=== PATIENT | male | born 1950 | race Caucasian/White ===

== ENCOUNTER 2017-02-21 06:04 | Day surgery (SDC) | payer MEDICARE ==
[~2017-02-21] VITALS: Ht 180.3 cm; Wt 79.2 kg
[~2017-02-21 06:04] MED LIST: AMLO10TA2 PO; ASPI325T PO; ATOR1TAB18 PO; CILO50TA PO; FISH1000; GABA100C4 PO; GABA800T PO; HYDR-3580 PO; LISI-515 PO; METO25TA3 PO
[2017-02-21] MEDS ORDERED: IOHEXOL 350 MG/ML 100 ML BTL (for Cath Lab) OTHER ONE (06:05)
[2017-02-21] MEDS ORDERED: IOHEXOL 350 MG/ML 50 ML BTL (for Cath Lab) OTHER ONE (06:05)
[2017-02-21] MEDS ORDERED: SODIUM BICARBONATE 100 MEQ in D5W 1000 ML IV SCH (06:30)
[2017-02-21 06:48] VITALS: BP 119/68; PULSE 67; RESP 17; TEMP 98.2; O2SAT 98
[2017-02-21 07:07] LABS: BASOPHIL % 0.3 % (0.0-2.0); EOSINOPHIL # 0.2 TH/MM3 (0-0.4); EOSINOPHIL % 2.4 % (0.0-4.0); HEMATOCRIT 34.9 % (39.0-51.0); HEMO FLAGS DIFF FINAL; LYMPH % 8.7 % (9.0-44.0); LYMPHOCYTE # 0.8 TH/MM3 (1.0-4.8); MEAN CELL VOLUME 95.1 FL (80.0-100.0); MEAN CORPUSCULAR HGB CONC 34.7 % (32.0-36.0); MONO % 4.1 % (0.0-8.0); NEUT % 84.5 % (16.0-70.0); PLATELET COUNT 153 TH/MM3 (150-450); RED BLOOD COUNT 3.67 MIL/MM3 (4.50-5.90); RED CELL DISTRIBUTION WIDTH 13.1 % (11.6-17.2); WHITE BLOOD COUNT 9.5 TH/MM3 (4.0-11.0)
[2017-02-21] MEDS ORDERED: GABA800T PO (07:13)
[2017-02-21] MEDS ORDERED: ATOR1TAB18 PO (07:13)
[2017-02-21] MEDS ORDERED: CILO50TA PO (07:13)
[2017-02-21] MEDS ORDERED: ASPI325T PO (07:13)
[2017-02-21] MEDS ORDERED: LISI-515 PO (07:13)
[2017-02-21] MEDS ORDERED: OMEGCAP PO (07:13)
[2017-02-21] MEDS ORDERED: AMLO10TA2 PO (07:13)
[2017-02-21] MEDS ORDERED: MULTTAB67 PO (07:13)
[2017-02-21] MEDS ORDERED: GABA100C4 PO (07:13)
[2017-02-21] MEDS ORDERED: HYDR-3580 PO (07:13)
[2017-02-21] MEDS ORDERED: METO25TA3 PO (07:13)
[2017-02-21 07:14] LABS: PROTHROMBIN TIME - PATIENT 10.7 SEC (9.8-11.6)
[2017-02-21 07:24] LABS: BICARBONATE 26.9 MEQ/L (21.0-32.0); POTASSIUM 4.5 MEQ/L (3.5-5.1)
[2017-02-21] MEDS ORDERED: MIDAZOLAM HCL 2 MG/2 ML VIAL ONE (07:55)
[2017-02-21] MEDS ORDERED: HEPARIN SODIUM - IV 10,000 UNITS/10 ML VIAL ONE (07:56)
[2017-02-21] MEDS ORDERED: HEPARIN-NS/PF INJ 1,000 ML ONE (08:07)
--- NOTE | 2017-02-21 09:06 | CATHPROC ---
[employer] HIS Report Study Information Study Number Admission Scheduled Start Study Start [id number] Feb 21 2017 6:04AM 02/21/2017 Feb 21 2017 7:48AM [place] Service Cath Endovascular Study Admit Source Facility Department Other [facility] - Audio Visual Coordinator Physician and Clinical Staff Initial [employer] Assistant Department Head Aj Fan RN Recorder Hanna Mejia,RT(R) (BS) Scrub Emmett MoranRT(R) Procedures Performed Procedure Location (Site) Vessel Name Abdominal Angiogram Abd Aorta (A3) Aorta Abdominal Angiogram PELVIS Angiogram (manual) Fem Art (left) Femoral Art Wire insertion Fem Art (left) Femoral Art Wire insertion Fem Art (right) Femoral Art Equipment Time Insulation Batting Machine Operator Description Size Mfg Part Number Used/Scraped [id number] 08:07 ANGIO-DYNAMICS OMNI FLUSH 65CM CATHETER FR 5 Used *[id number]- INTRODUCER SET, 08:07 [employer]. FR 5 SC-NT-U-SST Used MICROPUNCTURE, STIFFENED *[id number] 08:55 DAIG/ST. MERLY MEDICAL ANGIOSEAL, FR6 VIP FR 6 Used *[id number] [id number] 08:07 [employer] WIRE, [place]SON .035 150CM 150CM Used *[id number] 08:07 FAST FELT IND[employer]RIES PACK, CCL CUSTOM * Used *[id number] 08:07 NAMIC TUBING, HIGH PRESSURE 48" 48" Used *[id number] 08:07 NYCOMED OMNIPAQUE, 300 MG, 150ML 150ML [id number] Used 08:07 NYCOMED OMNIPAQUE, 300 MG, 50ML 50ML [id number] Used [id number] 08:07 FRAIRE MEDICAL BLANKET,WARM AIR CCL * Used *[id number] 08:07 TERUMO MEDICAL SHEATH, FR5 TERUMO (10CM) FR 5 Used *[id number] WIRE, ANGLE GLIDE STIFF .035 [id number] 08:07 TERUMO MEDICAL/GIOVANNY 260CM Used 260CM *[id number] History: Allergies Allergy Reaction No Known Allergies Labs Hgb (g/dl) Hct (%) WBC (l/cumm) Platelets (thousands) 11.60-17.00 35.00-51.00 4.00-11.00 150.00-450.00 12.5 34.4 9.5 153 Glucose (mg/dl) BUN (mg/dl) Creatinine (mg/dl) BUN:Creatinine (1:x) 74.00-106.00 7.00-18.00 0.50-1.30 10.00-20.00 103 31 1.3 23.8 Na (meq/l) K (meq/l) 136.00-145.00 3.50-5.10 139 4.5 INR (PTT:PT) 0.90-1.10 1 CPK-MB (ng/ML) 0.50-3.60 Not Drawn Medication Medication Total Dose (Bolus/Oral) Medication Total Dosage/Unit 1% XYLOCAINE 20 mL FENTANYL 50 mcg VERSED 2 mg Medications (Bolus/Oral) Medication Time Given Dosage/Unit Administered By Reason VERSED 02/21/2017 8:13:01 AM 1 mg Aj Fan 1 mg VERSED given in lab by Aj Fan RN in Left Antecubital via Peripheral IV. FENTANYL 02/21/2017 8:13:08 AM 25 mcg Aj Fan 25 mcg FENTANYL given in lab by Aj Fan RN in Left Antecubital via Peripheral IV. 1% XYLOCAINE 02/21/2017 8:27:57 AM 20 mL Liam Banks 20 mL 1% XYLOCAINE given in lab by Liam Banks in Right Groin via Subcutaneous. VERSED 02/21/2017 8:28:35 AM 1 mg Aj Fan 1 mg VERSED given in lab by Aj Fan RN in Left Antecubital via Peripheral IV. FENTANYL 02/21/2017 8:28:39 AM 25 mcg Aj Fan 25 mcg FENTANYL given in lab by Aj Fan RN in Left Antecubital via Peripheral IV. Medication (Drip) Medication Time Given Dosage/Unit Concentration/Unit Diluent (ml) Solution IV Solutions 02/21/2017 7:49:22 AM 0 mL (IV) 500 NaCl .9 IV Solutions given in lab by Aj Fan RN in Left Antecubital via Peripheral IV. Pump/Drip Flow = 100 ml/hr using NaCl .9. Initial Case Assessment Cardiovascular HR Rhythm NIBP Chest Pain 78 reg 123/61 0 Edema Present Skin color Skin None Normal Warm Dry Circulatory - Right Pulses Dorsalis Pedis Femoral d 1 Scale (0,1,2,3,4,d) Circulatory - Left Pulses Dorsalis Pedis Femoral d 1 Scale (0,1,2,3,4,d) Circulatory - Lower Extremities Color Lower Right Color Lower Left Normal Normal Neurological State Oriented to time-place- Alert Moves all extremities person Respiration - General Respiration Rate SpO2 (%) O2 (lpm) (B/min) 15 100 2 Chronological Log Time Study Chronological Log 7:40:01 Patient arrived via Bed. 7:40:04 Patient Name, D.O.B, / Armband Verified By R.N. 7:49:07 Consent signed by the physician and the patient and verified by the Audio Visual Coordinator staff. 7:49:08 Pre-op and post- op instructions given; patient acknowledges understanding of instructions . 7:49:09 Verbal Stimulation=2 Physical Stimulation=2 Airway=2 Respiration=2 TOTAL=8. (0=absent, 1=l imited, 2=present) 7:49:11 Presedation assessment performed by Audio Visual Coordinator RN. 7:49:15 Patient has been NPO for More than 6Hrs. 7:49:16 Skin Breakdown none per pt 7:49:17 Patient Warmer Placed on the Table. 7:49:19 George Prominences Protected 7:49:21 A # 20 IV was noted in the Antecubital (left). Grade = 0 IV Solutions given in lab by Aj Fan, RN in Left Antecubital via Peripheral IV. Pump/Drip Flow = 100 ml/hr using 7:49:22 NaCl .9. 7:49:23 History and physical on the chart or being dictated. Assessment: Initial Case, HR=78 BPM, Rhythm=reg, OALQ=915/61 mmhg, Chest Pain=0, Edema=None, Col or=Normal, Skin = Warm, Dry Right Pulses: Michael Ped=d, Femoral=1 Left Pulses: Michael Ped=d, Femoral=1 7:49:24 Lower Right Extremities: Color=Normal Lower Left Extremities: Color=Normal Neurological: State=Alert, Ox3, BARRERA Respiration: Resp=15 B/min, PpD0=347 %, O2=2 lpm Vitals capture started with the following parameters, Patient=Adult, Interval=5 min, Initial Pre mmkem=591 mmHg, 7:56:56 Deflation Rate=5 mmHg 7:57:18 Reference ECG taken 7:57:37 HR=75 bpm, WFOJ=401/65 mmhg, SpO2=99.0 %, Resp=35 B/min, Pain=0, David=10, Loo=2 8:02:36 HR=75 bpm, DOMQ=870/61 mmhg, SpO2=96.0 %, Resp=11 B/min, Pain=0, David=10, Loo=2 8:07:33 HR=77 bpm, MHMY=357/65 mmhg, SpO2=99.0 %, Resp=13 B/min, Pain=0, David=10, Loo=2 8:08:20 Bilateral groins prepped with 2% chlorhexidine, and draped after a 3 minute waiting time. 8:12:36 HR=78 bpm, GVCN=272/64 mmhg, MmC1=015.0 %, Resp=9 B/min 8:13:01 1 mg VERSED given in lab by Aj Fan RN in Left Antecubital via Peripheral IV. 8:13:08 25 mcg FENTANYL given in lab by Aj Fan RN in Left Antecubital via Peripheral IV. 8:17:37 HR=75 bpm, LGRN=463/62 mmhg, SpO2=94.0 %, Resp=7 B/min, Pain=0, David=10, Loo=2 8:22:34 HR=76 bpm, VIMZ=466/63 mmhg, SpO2=98.0 %, Resp=9 B/min, Pain=0, David=10, Loo=2 8:27:33 HR=82 bpm, GQEC=425/69 mmhg, SpO2=98.0 %, Resp=6 B/min Time Out. Correct patient, correct procedure, correct physician, power injector loaded, with con trast with surgical team 8:27:34 present. Time Out Concurred by MD and individual staff in procedure. 8:27:45 Case Start 8:27:57 20 mL 1% XYLOCAINE given in lab by Liam Banks in Right Groin via Subcutaneous. 8:28:35 1 mg VERSED given in lab by Aj Fan RN in Left Antecubital via Peripheral IV. 8:28:39 25 mcg FENTANYL given in lab by Aj Fan RN in Left Antecubital via Peripheral IV. 8:30:32 Access site was Right Femoral Artery using ultrasound A INTRODUCER SET, MICROPUNCTURE, STIFFENED FR 5 was advanced into the Fem Art (left) using the P ercutaneous 8:30:55 technique. A SHEATH, FR5 TERUMO (10CM) FR 5 was exchanged in the Fem Art (left). This was necessary in orde r to 8:31:42 accomodate a larger catheter. 8:32:17 A SHEATH, FR5 TERUMO (10CM) FR 5 was advanced into the Fem Art (right) using the Percutaneou s technique. 8:32:36 HR=82 bpm, BUUV=025/61 mmhg, SpO2=97.0 %, Resp=10 B/min, Pain=0, David=10, Loo=2 8:33:17 Fem Art (left) angiogram, manually injected. 8:33:45 Fem Art (left) angiogram, manually injected. A OMNI FLUSH 65CM CATHETER FR 5 was advanced over a wire. OMNIPAQUE, 300 MG, 150ML 150ML was use d for 8:34:28 injections. 8:35:47 Through a OMNI FLUSH 65CM CATHETER FR 5, The Abdominal Aorta was injected with 10 cc's of co ntrast. 8:36:37 Through a OMNI FLUSH 65CM CATHETER FR 5, The Abdominal Aorta was injected with 10 cc's of co ntrast. 8:37:30 Through a OMNI FLUSH 65CM CATHETER FR 5, The Abdominal Aorta was injected with 10 cc's of co ntrast. 8:38:05 Through a OMNI FLUSH 65CM CATHETER FR 5, The Abdominal Aorta was injected with 10 cc's of co ntrast. 8:38:06 HR=80 bpm, SFIE=568/64 mmhg, SpO2=98.0 %, Resp=11 B/min, Pain=0, David=10, Loo=2 8:39:43 A WIRE, ANGLE GLIDE STIFF .035 260CM 260CM was inserted via Fem Art (right). 8:41:30 Wire removed 8:42:36 HR=82 bpm, UZDM=307/66 mmhg, SpO2=99.0 %, Resp=17 B/min, Pain=0, David=10, Loo=2 Through a OMNI FLUSH 65CM CATHETER FR 5, The Femoral Run-off was injected with contrast. Injec tions continued 8:43:50 down the right leg. 8:47:37 HR=85 bpm, BJQX=013/65 mmhg, SpO2=99.0 %, Resp=5 B/min, Pain=0, David=10, Loo=2 8:52:38 HR=95 bpm, PAUW=530/65 mmhg, SpO2=99.0 %, Resp=14 B/min, Pain=0, David=10, Loo=2 8:53:32 A WIRE, ANGLE GLIDE STIFF .035 260CM 260CM was inserted via Fem Art (left). 8:54:22 Wire removed 8:54:49 ANGIOSEAL, FR6 VIP FR 6 placement in the Fem Art (left) 8:56:03 Case End 8:56:47 Catheter(s) removed without difficulty 8:56:55 DOCU called. Spoke to Alannah. 8:57:16 No case complications noted. 8:57:18 Cine recording checked. 8:57:20 Bedside Report will be given. 8:57:21 Implantable Device card placed in patient's chart. 8:57:23 Contrast Scanned 8:57:35 HR=91 bpm, VEUH=636/73 mmhg, SpO2=97.0 %, Resp=22 B/min, Pain=0, David=10, Loo=2 8:58:00 Sterile dressing applied to site 9:02:38 HR=88 bpm, SFTF=376/73 mmhg, SpO2=99.0 %, Resp=0 B/min, Pain=0, David=10, Loo=2 9:03:29 Vitals capture stopped. 9:05:37 Patient moved to [facility] End Study - Contrast Media Used In Study Contrast Total Opened (mL) Total Used (mL) Total Wasted (mL) Omnipaque 150 150 0 End Study - Maximum Contrast Load Max Contrast Load (mL) 285.3 End Study - Radiation Exposure Fluoro Time (minutes) 5.5 End Study - Sheaths Sheaths Pulled By Sheath Hold Time (min) Liam Banks End Study - Patient Disposition Complications Transferred To Interventional Outcome No Audio Visual Coordinator Holding No attempt made
[2017-02-21] MEDS ORDERED: MORPHINE SULFATE 4 MG/ML INJ IV PRN (09:15)
--- NOTE | 2017-02-21 09:23 | MA ---
cc: GRISELDA KOWALSKI DATE: 02/21/2017 PROCEDURE Aortogram and selective right lower extremity angiogram. SURGEON Jocelyn. DETAILS OF PROCEDURE The patient's left groin was prepped and draped in a sterile fashion after being under moderate sedation. I got access to the left common femoral artery using duplex ultrasound. I did use 5 cc of 1% lidocaine to anesthetize the groin. I used a 21-gauge needle, exchanged for a non-braided wire for a 4 Cook Islander micropuncture catheter then exchanged for a 5 Cook Islander sheath. I advanced an Omni Flush catheter into the abdominal aorta. I shot an AP aortogram. I pulled my catheter down and I shot pelvic oblique arteriograms. I selected out the right external iliac artery with a stiff angle Glidewire and the Omni Flush catheter and I shot a selective right lower extremity arteriogram. After my findings I pulled my catheter back over a wire and then shot a selective groin arteriogram. Once I felt it was safe I exchanged for a 6 Cook Islander Angio-Seal and applied pressure to the left groin. There was no hematoma. My findings were that the abdominal aorta was widely patent. The bilateral renal arteries were widely patent. The bilateral common internal and external iliac arteries were widely patent with minimal disease. The left common femoral and profunda femoral artery and proximal SFA were patent. The right common femoral artery had a significant narrowing with a patent profunda femoral artery distal to it, and then a chronic total occlusion of the SFA just after its takeoff with reconstitution of the SFA that approached Keven's canal. The right popliteal artery was patent. Proximally the patient had what appeared to be an anterior tibial artery and tibioperoneal trunk runoff, although it was difficult to see due to the poor perfusion from above exactly what the runoff was in the mid to distal foot. It should be noted that the patient appeared to have just single-vessel runoff through the anterior tibial artery giving rise to the dorsalis pedis on the right. I was not able to visualize the posterior tibial artery at the level of the ankle. 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 The patient had a diffusely calcified right superficial femoral artery with a chronic total occlusion and reconstitution of the chronic total occlusion that was more than 10 cm that extended just distal to the takeoff to the area of Keven's canal. It approached Keven's canal with a patent popliteal artery with single-vessel runoff via the anterior tibial artery at the level of the ankle. DO ADILIA Grady/JOSHUA /9:04 AM /9:11 AM
--- NOTE | 2017-02-21 16:38 | EKG ---
Date Performed: 02/21/2017 Time Performed: 06:56:50 PTAGE: 66 years EKG: Sinus rhythm . Possible inferior infarct - age undetermined Abnormal ECG NO PREVIOUS TRACING DOCTOR: Sugey Blue Interpretating Date/Time 02/21/2017 16:34:22
[2017-03-02] MEDS ORDERED: INDO50CA PO (13:27)
[2017-03-09] MEDS ORDERED: INFL1INJ56 IM (10:04)
[2017-03-09] MEDS ORDERED: HYDR-3583 PO (10:23)
== END 2017-02-21 12:06 | disposition home or self-care (01) ==
LOC: HDOC 06:04 → HDIC 06:05 → HDOC 12:06
PROVIDERS: ATTEND Surgery
DX: I73.9 Peripheral vascular disease, unspecified (principal); I25.10 Atherosclerotic heart disease of native coronary artery without angina pectoris; I10 Essential (primary) hypertension; R94.31 Abnormal electrocardiogram [ECG] [EKG]
CPT/HCPCS: 36246; 75710; 80048; 85025; 85610; 93005; C1760; C1769; C1893; G0269; J1644; J2250; J3010; J7070; Q9967

== ENCOUNTER 2017-03-20 08:00 | Inpatient (IN) | payer MEDICARE ==
[~2017-03-20] VITALS: Ht 180.3 cm; Wt 84.5 kg
[~2017-03-20 08:00] MED LIST changes: +ASPI-183 PO; -ASPI325T PO; -ATOR1TAB18 PO; +ATOR80TA45 PO; -FISH1000; -HYDR-3580 PO; +HYDR-3583 PO; -METO25TA3 PO; +MULTTAB67 PO; +OMEGCAP PO
[2017-03-24] MEDS ORDERED: METO25TA3 PO (15:54)
[2017-03-27] MEDS ORDERED: VITA400T18 PO (11:31)
[2017-03-27] MEDS ORDERED: INDO50CA PO (11:31)
[2017-03-27] MEDS ORDERED: CIAL10TA PO (11:31)
[2017-03-28] MEDS ORDERED: METOPROLOL TARTRATE 25 MG TAB PO PRN ×2 (09:30→21:00)
[2017-03-28] MEDS ORDERED: POVIDONE IODINE 5% (ANTISEPSIS KIT) 4 APPLICATIONS EACH NARE PRN ×2 (09:30→21:00)
[2017-03-28] MEDS ORDERED: INSULIN HUMAN REGULAR 1,000 UNITS/10 ML VIAL SQ PRN ×2 (09:30→21:00)
[2017-03-28] MEDS ORDERED: SODIUM CHLORID 0.9% 500 ML IV PRN ×2 (09:30→21:00)
[2017-03-28] MEDS ORDERED: LACTATED RINGER'S 1000 ML IV PRN ×2 (09:30→21:00)
[2017-03-28] MEDS ORDERED: CHLORHEXIDINE GLUCONATE 2 % 1 PACK (2 CLOTHS) TOPICAL PRN ×2 (09:30→21:00)
[2017-03-28 09:34] LABS: AUTOMATED NEUTROPHIL # 2.7 TH/MM3 (1.8-7.7); EOSINOPHIL # 0.3 TH/MM3 (0-0.4); EOSINOPHIL % 7.5 % (0.0-4.0); HEMATOCRIT 38.9 % (39.0-51.0); HEMO FLAGS DIFF FINAL; LYMPH % 22.9 % (9.0-44.0); MEAN CELL VOLUME 95.7 FL (80.0-100.0); MEAN CORPUSCULAR HGB CONC 34.5 % (32.0-36.0); MONO % 8.8 % (0.0-8.0); NEUT % 59.8 % (16.0-70.0); PLATELET COUNT 199 TH/MM3 (150-450); RED BLOOD COUNT 4.06 MIL/MM3 (4.50-5.90); RED CELL DISTRIBUTION WIDTH 13.7 % (11.6-17.2); WHITE BLOOD COUNT 4.5 TH/MM3 (4.0-11.0)
[2017-03-28 09:46] LABS: APTT (PATIENT) 26.2 SEC (24.3-30.1); INTERNATIONAL NORMALIZED RATIO 1.1 RATIO; PROTHROMBIN TIME - PATIENT 11.9 SEC (9.8-11.6)
[2017-03-28 09:48] LABS: POTASSIUM 4.6 MEQ/L (3.5-5.1)
--- NOTE | 2017-03-28 10:28 | RADRPT ---
EXAM DATE/TIME: 03/28/2017 09:24 [place] COMPARISON: No previous studies available for comparison. INDICATIONS : Evaluate for pneumonia, pneumothorax, or communicable disease. Pre-op. MEDICAL HISTORY : None. SURGICAL HISTORY : None. ENCOUNTER: Initial ACUITY: 1 day PAIN SCORE: 0/10 LOCATION: Bilateral chest FINDINGS: Portable AP view of the chest demonstrates a normal-sized cardiac silhouette. No effusion, consolidat ion, or pneumothorax is visualized. The bones and soft tissues demonstrate no acute abnormality. Ther e is calcification of the aorta. CONCLUSION: No acute cardiopulmonary abnormality is identified. Moise Clifford MD on March 28, 2017 at 10:25 Board Certified Radiologist. This report was verified electronically.
--- NOTE | 2017-03-28 11:09 | HHI.HP ---
History of Present Illness Chief Complaint: R LE claudication History of Present Illness 66 yo male with lifestyle limiting R LE claudication, failed exercise and medical therapy. No rest pain and no tissue loss. ABIs 0.6. Angio by Dr. Banks showed R SOLID WASTE DISPOSAL MANAGER plaque and R SFA plaque. Past/Family/Social History Past Medical History HTN PAD CAD XOL gout Past Surgical History CABG TKA rotator cuff R LE angiogram 02/21 Family History NC Home Medications Active Scripts Metoprolol Tartrate (Metoprolol Tartrate) 25 Mg Tab, 25 MG PO BID, #120 TAB 3 Refills Prov:Danny Hi MD, R3 03/24/17 Hydrocodone-Acetaminophen (Hydrocodone-Acetaminophen) 10-325 mg Tab, 1 TAB PO DAILY Y for PAIN, #30 TAB 0 Refills Fill on 03/22/2017 Prov:Danny Hi MD, R3 03/09/17 Reported Medications Indomethacin (Indomethacin) 50 Mg Cap, 50 MG PO DAILY, CAP 0 Refills Take with food, milk, or antacids to decrease stomach adverse effects. 03/27/17 Vitamin E Acid Succinate (Vitamin E) 400 Unit Tablet, 1 CAP PO DAILY for Nutritional Supplement 03/27/17 Tadalafil (Cialis) 10 Mg Tab, 10 MG PO DAILY Y for Erectile Dysfunction, TAB 0 Refills Do not exceed 1 dose/day. 03/27/17 Multiple Vitamin (Multiple Vitamin) 1 Tab, 1 TAB PO DAILY for Nutritional Supplement, TAB 0 Refills 02/21/17 Fish Oil-Cholecalciferol (Joseph-3 Fish Oil/Vitamin) 1,000-1,000 Mg Cap, 1 CAP PO BID for Nutritional Supplement, CAP 0 Refills 02/21/17 Lisinopril (Lisinopril) 20 Mg Tab, 20 MG PO DAILY, TAB 0 Refills 02/21/17 Gabapentin (Gabapentin) 100 Mg Cap, 100 MG PO TID, CAP 0 Refills 02/21/17 Gabapentin (Gabapentin) 800 Mg Tab, 800 MG PO TID, TAB 0 Refills 02/21/17 Cilostazol (Cilostazol) 50 Mg Tab, 50 MG PO BID for INTERMITTENT CLAUDICATION, TAB 0 Refills 02/21/17 Atorvastatin (Atorvastatin) 80 Mg Tab, 80 MG PO HS for Cholesterol Management, TAB 0 Refills 02/21/17 Aspirin (Aspirin) 325 Mg Tab, 325 MG PO DAILY, TAB 0 Refills 02/21/17 Amlodipine (Amlodipine) 10 Mg Tab, 10 MG PO DAILY for Blood Pressure Management , TAB 0 Refills 02/21/17 Discontinued Reported Medications Hydrocodone-Acetaminophen (Hydrocodone-Acetaminophen) 7.5-325 mg Tab, 1 TAB PO Q6H Y for PAIN, TAB 0 Refills 02/21/17 Discontinued Scripts Indomethacin (Indomethacin) 50 Mg Cap, 50 MG PO BID Y for PAIN SCALE 5 TO 10, # 60 CAP 3 Refills Take with food, milk, or antacids to decrease stomach adverse effects. Prov:Danny Hi MD, R3 03/02/17 Coded Allergies: No Known Allergies (Verified Allergy, Unknown, 03/28/17) Review of Systems Constitutional: DENIES: Fever, Chills Cardiovascular: COMPLAINS OF: Claudication, DENIES: Chest pain Physical Exam Vitals/I&O Date Time Temp Pulse Resp B/P (MAP) Pulse Ox O2 Delivery O2 Flow Rate FiO2 03/28/17 09:39 97.7 51 16 142/67 (92) 97 Neuro: resting comfortably, BARRERA HEENT: NC/AT; PERRLA Neck: trachea midline Heart: reg rate, no M Lungs: clear B Abdomen: NT Vascular: no palpable R pedal pulses Extremities: BARRERA, no wounds Laboratory Tests Test 03/28/17 09:20 White Blood Count 4.5 Red Blood Count 4.06 Hemoglobin 13.4 Hematocrit 38.9 Mean Corpuscular Volume 95.7 Mean Corpuscular Hemoglobin 33.0 Mean Corpuscular Hemoglobin Concent 34.5 Red Cell Distribution Width 13.7 Platelet Count 199 Mean Platelet Volume 8.1 Neutrophils (%) (Auto) 59.8 Lymphocytes (%) (Auto) 22.9 Monocytes (%) (Auto) 8.8 Eosinophils (%) (Auto) 7.5 Basophils (%) (Auto) 1.0 Neutrophils # (Auto) 2.7 Lymphocytes # (Auto) 1.0 Monocytes # (Auto) 0.4 Eosinophils # (Auto) 0.3 Basophils # (Auto) 0.0 CBC Comment DIFF FINAL Differential Comment Prothrombin Time 11.9 Prothromb Time International Ratio 1.1 Activated Partial Thromboplast Time 26.2 Blood Urea Nitrogen 19 Creatinine 1.13 Random Glucose 91 Calcium Level 9.5 Sodium Level 140 Potassium Level 4.6 Chloride Level 106 Carbon Dioxide Level 28.0 Anion Gap 6 Estimat Glomerular Filtration Rate 65 Last 48 hours Impressions Chest X-Ray 03/28/17 0909 Signed Impressions: Service Date/Time: Tuesday, March 28, 2017 09:24 - CONCLUSION: No acute cardiopulmonary abnormality is identified. MD Ana Denise VTE Risk Assessment Ana VTE Risk Assessment: Mod/High Risk (score >= 2) Teofilorini Risk Assessment Model Point Value = 1 Point Value = 2 Point Value = 3 Point Value = 5 Age 41-60 Minor surgery BMI > 25 kg/m2 Swollen legs Varicose veins or History of unexplained or recurrent spontaneous Oral contraceptives or hormone replacement Sepsis (< 1 month) Serious lung disease, including pneumonia (< 1 month) Abnormal pulmonary function Acute myocardial infarction Congestive heart failure (< 1 month) History of inflammatory bowel disease Medical patient at bed rest Age 61-74 Arthroscopic surgery Major open surgery (> 45 min) Laparoscopic surgery (> 45 min) Malignancy Confined to bed (> 72 hours) Immobilizing plaster cast Central venous access Age >= 75 History of VTE Family history of VTE Factor V Leiden Prothrombin 24247E Lupus anticoagulant Anticardiolipin antibodies Elevated serum homocysteine Heparin-induced thrombocytopenia Other congenital or acquired thrombophilia Stroke (< 1 month) Elective arthroplasty Hip, pelvis, or leg fracture Acute spinal cord injury (< 1 month) Prophylaxis Regimen Total Risk Factor Score Risk Level Prophylaxis Regimen 0-1 Low Early ambulation 2 Moderate Order ONE of the following: *Sequential Compression Device (SCD) *Heparin 5000 units SQ BID 3-4 Higher Order ONE of the following medications: *Heparin 5000 units SQ TID *Enoxaparin/Lovenox 40 mg SQ daily (WT < 150 kg, CrCl > 30 mL/min) *Enoxaparin/Lovenox 30 mg SQ daily (WT < 150 kg, CrCl > 10-29 mL/min) *Enoxaparin/Lovenox 30 mg SQ BID (WT < 150 kg, CrCl > 30 mL/min) AND/OR *Sequential Compression Device (SCD) 5 or more Highest Order ONE of the following medications: *Heparin 5000 units SQ TID (Preferred with Epidurals) *Enoxaparin/Lovenox 40 mg SQ daily (WT < 150 kg, CrCl > 30 mL/min) *Enoxaparin/Lovenox 30 mg SQ daily (WT < 150 kg, CrCl > 10-29 mL/min) *Enoxaparin/Lovenox 30 mg SQ BID (WT < 150 kg, CrCl > 30 mL/min) AND *Sequential Compression Device (SCD) Assessment and Plan Plan R groin reconstruction and angiogram/endovascular intervention Discussed risks with patient who agrees to proceed. To OR Discharge Planning likely 2-3 days. Domestic partner: [phone] Cuco Tran MD Mar 28, 2017 11:09
[2017-03-28] MEDS ORDERED: THROMBIN (TOPICAL) 20,000 UNIT SPRAY KIT ONE (11:18)
[2017-03-28] MEDS ORDERED: PROTAMINE SULFATE 50 MG/5 ML VIAL ONE (11:18)
[2017-03-28] MEDS ORDERED: HEPARIN SODIUM - IV 10,000 UNITS/10 ML VIAL ONE ×2 (11:18→17:23)
[2017-03-28] MEDS ORDERED: HEPARIN-NS/PF INJ 500 ML ONE (11:18)
[2017-03-28] MEDS ORDERED: BUPIVACAINE HCL PF 0.5% 30 ML VIAL ONE (11:18)
[2017-03-28] MEDS ORDERED: LIDOCAINE HCL 1% PF 5 ML AMPULE OTHER ONE (12:00)
[2017-03-28] MEDS ORDERED: ceFAZolin INJ 1,000 MG VIAL IV ONE (12:00)
[2017-03-28] MEDS ORDERED: GLYCOPYRROLATE 1 MG/5 ML SYRINGE IV PUSH ONE (12:00)
[2017-03-28] MEDS ORDERED: PROPOFOL 200 MG/20 ML AMP IV ONE (12:00)
[2017-03-28] MEDS ORDERED: ROCURONIUM INJ 50 MG/5 ML SYRINGE IV PUSH ONE (12:00)
[2017-03-28] MEDS ORDERED: ONDANSETRON HCL 4 MG/2 ML VIAL IV PUSH ONE (12:00)
[2017-03-28] MEDS ORDERED: PHENYLEPH/NS 1000 MCG/10 ML SYR IV ONE (12:00)
[2017-03-28] MEDS ORDERED: MIDAZOLAM HCL 2 MG/2 ML VIAL IV ONE (12:00)
[2017-03-28] MEDS ORDERED: ESMOLOL HCL 100 MG/10 ML VIAL IV ONE (12:00)
[2017-03-28] MEDS ORDERED: NEOSTIGMINE 3 MG/3 ML SYR IV ONE (12:00)
[2017-03-28] MEDS ORDERED: ePHEDrine/NS 25 MG/5 ML SYR IV ONE (12:00)
--- NOTE | 2017-03-28 14:22 | HHI.PR ---
Immediate Post Op Note Procedure Date: Mar 28, 2017 Pre Op Diagnosis: PAD, R LE claudication Post Op Diagnosis: PAD, R LE claudication Surgeon: Cuco Tran Delivery Sales Worker(s): Yuan Zaldivar Procedure: R DUMPER BAILER OPERATOR TEA with patch angioplasty R SFA orbital atherectomy and CONSTRUCTION LINEMAN Findings: palpable DP at end of case Complications: none Specimen(s) removed: none for pathology Estimated blood loss: 200mL Anesthesia: General Drains: None Fluids: 800mL IVF Urinary Output (mLs): 235 Patient to: PACU Patient Condition: Good Implant/Devices: SEE IMPLANT LOG (if applicable) Date/Time of Procedure: SEE SURGICAL CARE RECORD Cuco Tran MD Mar 28, 2017 14:22
[2017-03-28] MEDS ORDERED: DO NOT ADM ANY ANTICOAGULANT DRUGS PRN (14:45)
[2017-03-28] MEDS ORDERED: ENOXAPARIN SODIUM 30 MG/0.3 ML SYRINGE SQ SCH (15:00)
[2017-03-28] MEDS ORDERED: *morphine SULFATE 8 MG/ML PERIprocedure ONLY ONE ×3 (15:10→15:35)
[2017-03-28] MEDS ORDERED: NITROGLYCERIN 2% OINT 1 GM PACKET ONE (15:10)
[2017-03-28] MEDS ORDERED: NITROGLYCERIN 2% OINT 1 GM PACKET TOPICAL ONE (15:30)
[2017-03-28] MEDS ORDERED: *HYDROmorphone PF 1 MG VIAL PERIprocedural Use ONLY ONE (15:58)
[2017-03-28] MEDS ORDERED: ASPIRIN EC 81 MG TABEC ONE (16:17)
[2017-03-28] MEDS ORDERED: HEPARIN-NS/PF INJ 1,000 ML ONE (16:39)
[2017-03-28] MEDS ORDERED: ASPIRIN EC 81 MG TABEC PO ONE (16:45)
--- NOTE | 2017-03-28 16:59 | MB ---
cc: YURIDIA GEE M.D. DATE OF CONSULTATION: 03/28/2017 REASON FOR CONSULTATION: Stat cardiology consultation for evaluation of jaw pain. Troponin elevation. ST changes. HISTORY OF PRESENT ILLNESS: Ashish Abbott is a 66-year-old man who is a patient of my colleague Dr. Xavier. The patient is known to have coronary artery disease. He had an inferior STEMI in February 2006 and had a 3.0 x 28 mm Cypher stent to the right coronary artery then in March 2016 underwent stenting of the proximal LAD with a 3.0 x 18 mm drug-eluting stent, along with a 2.5 x 18 mm drug-eluting stent of the mid-LAD and balloon angioplasty of the diagonal branch. His last nuclear stress test was June 06 showing an ejection fraction of 47% and fixed inferior defect and no ischemia. The patient underwent a right common femoral endarterectomy. This morning for limiting claudication. Hemodynamically during surgery he did okay, but he was noted to have significant ST changes on the monitor postop 12-lead EKG is very abnormal with more than [address] depression V3-V6 but also has some subtle changes in 1 and AVL and the inferior leads. The patient had jaw pain when he was woke up from surgery. Jaw pain is currently resolved. Denies shortness of breath at this point. He quit smoking many years ago. MEDICATIONS PRIOR TO ADMISSION Include 1. Amlodipine 5 mg. 2. He has been on Aspirin every day but not today. 3. Atorvastatin 80 mg 4. Cialis as needed. 5. Fish oil 6. Gabapentin 7. Hydrocodone. 8. Indomethacin. 9. Lisinopril. 10. Magnesium. 11. Metoprolol 25 b.i.d. 12. Proventil. 13. Saw palmetto. 14. Vitamins. ALLERGIES None known. PAST MEDICAL HISTORY: Includes past alcohol abuse Coronary artery disease Renal cyst Fatty liver disease Gout Hyperlipidemia Hypertension Impotence Old myocardial infarction as described in the history of present illness. Neuropathy. Cancer of the soft palate, treated with radiation therapy. Peripheral arterial disease. Benign prostatic hypertrophy PAST SURGICAL HISTORY: past surgical history includes a stent procedure Elbow surgery Left knee replacement Right rotator cuff repair FAMILY HISTORY: Family history is unremarkable. SOCIAL HISTORY Notable for previous smoking. REVIEW OF SYSTEMS Notable for claudication preop joint pain preop The remaining review of systems is negative. PHYSICAL EXAMINATION: IN GENERAL: Well-developed, well-nourished male in no acute distress. VITAL SIGNS: Charted. HEAD, EYES, EARS, NOSE, AND THROAT: Exam unremarkable. NECK: No JVD, no bruits. CHEST: Clear to auscultation. CARDIAC: Exam S1-S2 regular rate and rhythm and no murmurs, no gallops. ABDOMEN: Soft, nontender. EXTREMITIES: The right groin is status post surgical left groin has an adequate pulse. Pedal pulses are palpable. NEUROLOGIC: He is alert and appears appropriate EKG obtained February 21 showed sinus rhythm with an old inferior infarct. EKG from 03:[address] depression V3-V6. Repeat EKG now at 16:14, still shows marked ST depression V3-V6 along with downsloping ST-segment and one T-wave inversion in aVL all these findings are consistent with ischemic event. His laboratories are charted, hematocrit 38.9, creatinine was 1.13. He received total 30-40 cc of contrast estimated by Dr. Tran for his right common femoral endarterectomy procedure. Chest x-ray this morning report is charted. IMPRESSION Acute non-ST segment elevation myocardial infarction. There is a possibility that this could be a posterior infarct based on the electrocardiogram changes. EKG changes are persistent troponins are mildly elevated. PLAN: Discussed with Dr. Tran in view of the acute nature of the EKG changes and enzyme changes, I think it would be best if we went straight to the cardiac catheterization laboratory, that way we can define his anatomy determine where the ischemia is coming from and possibly revascularize this with another stent. Th1e patient is awake, alert, I have explained the procedure to him. He understands the risk and he is agreeable to proceed. The general labor forklift operator as been called, the procedure will be done here shortly. MD LEIDA Barrera/leela /4:25 PM /4:43 PM
[2017-03-28] MEDS ORDERED: MIDAZOLAM HCL 2 MG/2 ML VIAL ONE (17:12)
[2017-03-28] MEDS ORDERED: NITROGLYCERIN-D5W 50 MG/250 ML 250 ML ONE (17:23)
[2017-03-28] MEDS ORDERED: NITROGLYCERIN 400 MCG/SPRAY 4.9 GM BOTTLE SL ONE (17:30)
--- NOTE | 2017-03-28 17:41 | PD.CONS ---
[facility] Service Critical Care Medicine Consult Requested By Dr. Tran Reason for Consult management of hemodynamics post NSTEMI s/p groin reconstruction Primary Care Physician Danny Taylor , Gloria Hi MD History of Present Illness This is a 58-year-old male with a history of peripheral arterial disease and an inferior STEMI in 2005 who presented for elective right femoral endarterectomy with reconstruction. In the recovery room he was noted to have significant ST depressions with jaw pain. He had positive troponins. He was taken emergently to the [facility] where they found a 90% left main stenosis. They placed interarterial balloon pump and took him to the CVICU postop. I evaluated the patient in the CVICU. he denies any jaw or chest pain now. does endorse 8/10 right groin pain. good distal pulses. no groin hematoma. Review of Systems ROS Limitations: Clinical Condition Constitutional: DENIES: Fever, Chills Respiratory: DENIES: Cough, Wheezing, Hemoptysis, Sputum production, Shortness of breath Cardiovascular: DENIES: Chest pain, Dyspnea on Exertion Gastrointestinal: DENIES: Abdominal pain, Nausea, Vomiting Neurologic: DENIES: Headache Past Family Social History Allergies: Coded Allergies: No Known Allergies (Verified Allergy, Unknown, 03/28/17) Past Medical History Coronary artery disease STEMI in 2005 Renal cyst Fatty liver disease Gout Hyperlipidemia Hypertension Neuropathy Cancer of the soft palate status post XRT Peripheral arterial disease BPH Past Surgical History Prior drug-eluting stent to the RCA in 2005 Drug-eluting stent to 16 to the proximal LAD Prior drug-eluting stent in 2016 to the mid LAD Elbow surgery Left total knee arthroplasty Right rotator cuff repair Reported Medications Metoprolol Tartrate 25 Mg Tab 25 Mg PO BID Hydrocodone-Acetaminophen 10-325 mg Tab 1 Tab PO DAILY PRN Indomethacin 50 Mg Cap 50 Mg PO DAILY Take with food, milk, or antacids to decrease stomach adverse effects. Vitamin E (Vitamin E Acid Succinate) 400 Unit Tablet 1 Cap PO DAILY Cialis (Tadalafil) 10 Mg Tab 10 Mg PO DAILY PRN Do not exceed 1 dose/day. Multiple Vitamin 1 Tab 1 Tab PO DAILY [place]-3 Fish Oil/Vitamin (Fish Oil-Cholecalciferol) 1,000-1,000 Mg Cap 1 Cap PO BID Lisinopril 20 Mg Tab 20 Mg PO DAILY Gabapentin 100 Mg Cap 100 Mg PO TID Gabapentin 800 Mg Tab 800 Mg PO TID Cilostazol 50 Mg Tab 50 Mg PO BID Atorvastatin (Atorvastatin Calcium) 80 Mg Tab 80 Mg PO HS Aspirin 325 Mg Tab 325 Mg PO DAILY Amlodipine (Amlodipine Besylate) 10 Mg Tab 10 Mg PO DAILY Active Ordered Medications See MAR Family History Reviewing the chart and found to be noncontributory to his acute illness Social History Prior significant EtOH history Prior smoking Not an active smoker Physical Exam Vital Signs Vital Signs Date Time Temp Pulse Resp B/P (MAP) Pulse Ox O2 Delivery O2 Flow Rate FiO2 03/28/17 16:15 91 16 136/68 (90) 97 Nasal Cannula 2 03/28/17 16:00 80 16 142/67 (92) 97 Nasal Cannula 2 03/28/17 15:45 79 16 137/65 (89) 98 Nasal Cannula 2 03/28/17 15:30 84 16 152/70 (97) 98 Nasal Cannula 2 03/28/17 15:15 80 16 170/75 (106) 98 Nasal Cannula 2 03/28/17 15:00 79 16 146/70 (95) 100 Nasal Cannula 2 03/28/17 14:45 80 16 150/67 (94) 100 Nasal Cannula 2 03/28/17 14:42 97.8 80 16 151/71 (97) 100 Nasal Cannula 2 03/28/17 09:39 97.7 51 16 142/67 (92) 97 Physical Exam GENERAL: Middle-aged male, lying in bed, flat HEENT: Normocephalic. Atraumatic. Pupils equal, round, reactive, conjugate. Mucous membranes are moist NECK: Trachea is midline. There is no JVD. CHEST: Equal chest rise. Nasal cannula oxygen. CARDIOVASCULAR: Normal rate in the 80s, regular rhythm. Sinus by telemetry. Intra-arterial balloon pump which is 1-1, augmented mean arterial pressure 115. ABDOMEN: Soft, nontender, nondistended. No guarding. MUSCULOSKELETAL: Pulses 2+. No peripheral edema. Right groin with wound VAC, clean dry and intact without hematoma. Left groin with balloon pump sheath in place. Distal pulses 2+ and palpable NEUROLOGICAL: RASS 0. GCS 15. Follows commands. No focal deficits. Laboratory Laboratory Tests Test 03/28/17 09:20 03/28/17 15:15 White Blood Count 4.5 Red Blood Count 4.06 Hemoglobin 13.4 Hematocrit 38.9 Mean Corpuscular Volume 95.7 Mean Corpuscular Hemoglobin 33.0 Mean Corpuscular Hemoglobin Concent 34.5 Red Cell Distribution Width 13.7 Platelet Count 199 Mean Platelet Volume 8.1 Neutrophils (%) (Auto) 59.8 Lymphocytes (%) (Auto) 22.9 Monocytes (%) (Auto) 8.8 Eosinophils (%) (Auto) 7.5 Basophils (%) (Auto) 1.0 Neutrophils # (Auto) 2.7 Lymphocytes # (Auto) 1.0 Monocytes # (Auto) 0.4 Eosinophils # (Auto) 0.3 Basophils # (Auto) 0.0 CBC Comment DIFF FINAL Differential Comment Prothrombin Time 11.9 Prothromb Time International Ratio 1.1 Activated Partial Thromboplast Time 26.2 Blood Urea Nitrogen 19 Creatinine 1.13 Random Glucose 91 Calcium Level 9.5 Sodium Level 140 Potassium Level 4.6 Chloride Level 106 Carbon Dioxide Level 28.0 Anion Gap 6 Estimat Glomerular Filtration Rate 65 Total Creatine Kinase 76 Troponin I 0.16 Result Diagram: 03/28/17 0920 03/28/17919 Assessment and Plan Assessment and Plan Assessment: 66yM POD 0 s/p right femoral endarterectomy with groin reconstruction complicated by periop NSTEMI and 90% left main occlusion. Admit to CVICU with IABP. CT surgery eval. Remains very critically ill with NSTEMI post-op and high risk for sudden cardiac with left-main stenosis. s/p right femoral endarterectomy with groin reconstruction - frequent neurovascular checks - watch for groin hematoma periop NSTEMI 90% left main lesion Acute coronary syndrome IABP placement - heparin drip - ASA - CT surgery eval - trend troponins - additional recs per cardiology This patient remains critically ill with one or more organ systems which are or may become a threat to life. I have spent in excess of 31 minutes discontinuously in the care and management of this patient. This time is exclusive of procedures, and includes, but is not limited to, evaluation of the patient, review of the medical record, discussions with family, consultants, nursing staff, or respiratory therapy, and documentation in the medical record. Sushant Dela Cruz MD Mar 28, 2017 17:41
[2017-03-28] MEDS ORDERED: HEPARIN-D5W 25,000 U/250 ML 250 ML ONE (17:45)
--- NOTE | 2017-03-28 17:58 | CATHPROC ---
[facility] HIS Report Study Information Study Number Admission Scheduled Start Study Start [id number] Mar 28 2017 8:52AM 03/28/2017 Mar 28 2017 4:38PM [place] Service Cath Endovascular Study Admit Source Facility Department Other [facility] - [facility] Se[facility]it[facility] Physician and Clinical Staff Initial Renzo Lizarraga Engineering Design ManagerAmie Diez,RN Engineering Design ManagerFlip Rae,WHITLEY Recorder Abdoulaye, Ysabel,RT(R) Scrub Torsten, Inna,CONTRACTING EXECUTIVE TECH2 Procedures Performed Procedure Location (Site) Vessel Name Angiogram LV LV Ventricle Coronary Angiograms LCA Left Coronary Coronary Angiograms RCA Right Coronary IABP Fem Art (left) Femoral Art Wire insertion Fem Art (left) Femoral Art Equipment Time Wildlife Removal Specialist Description Size Mfg Part Number Used/Scraped TRANSDUCER, TRUWAVE [id number] 16:40 [employer] * Used W/STOCKCOCK *[id number] *[id number] *[id number] PIGTAIL ANG. 145 INFINITI [id number] CATHETER *[id number] BALLOON, FR8 50CC SENSATION [id number] 17:32 MAQUET FR 8 50CC Used PLUS 01U [id number] 16:40 [employer] PACK, CCL CUSTOM * Used *[id number] 16:40 [employer] PACER PEN, SKIN DUAL W/ RULER * Used *[id number] 16:40 [employer] MEDICAL SHEATH, FR6.5 PRELUDE 11CM FR 6.5 038ACT Used *[id number] 16:40 [employer] MEDICAL WIRE, 3MMJ .035 180CM 180CM Used *[id number] 16:40 NAMIC MANIFOLD, 4 PORT * Used *[id number] 16:40 NYCOMED OMNIPAQUE, 350 MG, 100ML 100ML [id number] Used [id number] 16:40 FRAIRE MEDICAL BLANKET,WARM AIR CCL * Used *[id number] History: Current Medications Medication Dosage/Unit Route Frequency Last Date/Time Taken ASA NORVASC Statins (any) LISINOPRIL LOPRESSOR History: Allergies Allergy Reaction No Known Allergies History: Risk Factors Family History of Hypertension Dyslipidemia Previous MO Previous Heart Failure Premature CAD Yes Yes No Yes No Prior Valve Prior PCI Prior PCIDate Prior CABG Surgery No Yes 03/22/2006 No Cerebrovascular Peripheral Artery Chronic Lung On Dialysis Diabetes Disease Disease Disease No No Yes No No History: Risk Factors Selection Items Current Smoker History: Symptoms/Diagnosis Selection Items Chest pain History: CV Disease Selection Items Known CAD History: Stress Tests Stress or Imaging Studies Performed No History: Other Disease Selection Items CAD HTN History: Other Current Smoker Method Quit Packs a Day Years Used Pack Years No Cigarettes 18 Years Ago 2 25 50 Labs Hgb (g/dl) Hct (%) WBC (l/cumm) Platelets (thousands) 11.60-17.00 35.00-51.00 4.00-11.00 150.00-450.00 13.4 38.9 4.5 199 Glucose (mg/dl) BUN (mg/dl) Creatinine (mg/dl) BUN:Creatinine (1:x) 74.00-106.00 7.00-18.00 0.50-1.30 10.00-20.00 91 19 1.1 17.3 Na (meq/l) K (meq/l) 136.00-145.00 3.50-5.10 140 4.6 Troponin I (ng/ml) CPK (u/l) CPK-MB (ng/ML) 0.02-0.05 26.00-308.00 0.50-3.60 0.16 76 Not Drawn Medication Medication Total Dose (Bolus/Oral) Medication Total Dosage/Unit 1% XYLOCAINE 20 mL FENTANYL 100 mcg NITROGLYCERIN S/L 0.8 mg VERSED 1 mg Medications (Bolus/Oral) Medication Time Given Dosage/Unit Administered By Reason 1% XYLOCAINE 03/28/2017 5:13:26 PM 20 mL Renzo Cortez 20 mL 1% XYLOCAINE given by Renzo Cortez in Left Groin via Subcutaneous. VERSED 03/28/2017 5:13:40 PM 1 mg Flip Srinivasan 1 mg VERSED given by Flip Srinivasan RN in Left Antecubital via Peripheral IV. FENTANYL 03/28/2017 5:14:44 PM 50 mcg Flip Srinivasan 50 mcg FENTANYL given by Flip Srinivasan, WHITLEY via Peripheral IV. NITROGLYCERIN S/L 03/28/2017 5:30:25 PM 0.4 mg Flip Srinivasan 0.4 mg NITROGLYCERIN S/L given by Flip Srinivasan RN via Sublingual. NITROGLYCERIN S/L 03/28/2017 5:32:20 PM 0.4 mg Flip Srinivasan 0.4 mg NITROGLYCERIN S/L given by Flip Srinivasan RN via Sublingual. FENTANYL 03/28/2017 5:32:47 PM 50 mcg Flip Srinivasan 50 mcg FENTANYL given by Flip Srinivasan RN in Left Antecubital via Peripheral IV. Medication (Drip) Medication Time Given Dosage/Unit Concentration/Unit Diluent (ml) Solution HEPARIN DRIP 03/28/2017 5:55:44 PM 1000 units/hr 61634 units 250 D5W 1000 units/hr HEPARIN DRIP given by Flip Srinivasan RN via Peripheral IV. Pump/Drip Flow = 10 ml/hr u [place] D5W [place] [address] units in 250 ml. Ordered by Renzo Cortez. NITROGLYCERIN DRIP 03/28/2017 5:25:40 PM 10 mcg/min 50 mg 250 D5W 10 mcg/min NITROGLYCERIN DRIP given by Flip Srinivasan RN via Peripheral IV. Pump/Drip Flow = 3 ml/hr using D5W with a concentration of 50 mg in 250 ml. Initial Case Assessment Cardiovascular HR Rhythm NIBP Chest Pain 92 reg 142/68 1 Edema Present Skin color Skin None Normal Warm Circulatory - Right Pulses Dorsalis Pedis Femoral 2 2 Scale (0,1,2,3,4,d) Circulatory - Left Pulses Dorsalis Pedis Femoral 2 2 Scale (0,1,2,3,4,d) Circulatory - Lower Extremities Color Lower Right Color Lower Left Normal Normal Neurological State Oriented to time-place- Alert Moves all extremities person Respiration - General Respiration Rate SpO2 (%) (B/min) 8 96 Chronological Log Time Study Chronological Log 16:38:37 Patient arrived via Bed. 16:38:38 Patient Name, D.O.B, / Armband Verified By R.N. 16:38:38 Consent signed by the physician and the patient and verified by the [facility] staff. 16:38:39 Pre-op and post- op instructions given; patient acknowledges understanding of instructions. 16:38:40 Verbal Stimulation=2 Physical Stimulation=2 Airway=2 Respiration=2 TOTAL=8. (0=absent, 1=li mited, 2=present) 16:38:46 Patient has been NPO for More than 6Hrs. 16:38:47 Skin Breakdown- 16:38:50 A # 18 IV was noted in the Antecubital (left). Grade = 0 16:39:02 A # 20 IV was noted in the Forearm (left). Grade = 0 Vitals capture started with the following parameters, Patient=Adult, Interval=5 min, Initial Pr gghnkm=602 mmHg, 16:40:08 Deflation Rate=5 mmHg, Cuff placed on Left Arm 16:40:11 Reference ECG taken 16:41:10 HR=89 bpm, NXCZ=041/68 mmhg, SpO2=96.0 %, Resp=10 B/min, Pain=1, David=10, Loo=2 16:44:44 History and physical on the chart or being dictated. Assessment: Initial Case, HR=92 BPM, Rhythm=reg, DFHJ=457/68 mmhg, Chest Pain=1, Edema=None, Co nay=Normal, Skin = Warm Right Pulses: Michael Ped=2, Femoral=2 Left Pulses: Michael Ped=2, Femoral=2 16:44:45 Lower Right Extremities: Color=Normal Lower Left Extremities: Color=Normal Neurological: State=Alert, Ox3, BARRERA Respiration: Resp=8 B/min, SpO2=96 % 16:45:38 Bilateral groins prepped with 2% chlorhexidine, and draped after a 3 minute waiting time. 16:45:44 MD paged 16:45:45 HR=90 bpm, BAYA=726/76 mmhg, SpO2=96.0 %, Resp=8 B/min, Pain=1, David=10, Loo=2 16:48:06 Pressure channel 1 zeroed. 16:50:42 HR=85 bpm, HCXG=335/69 mmhg, SpO2=96.0 %, Resp=8 B/min, Pain=1, David=10, Loo=2 16:55:43 HR=94 bpm, QFNT=712/71 mmhg, SpO2=96.0 %, Resp=12 B/min, Pain=1, David=10, Loo=2 17:00:44 HR=95 bpm, MOJT=429/67 mmhg, SpO2=96.0 %, Resp=14 B/min, Pain=1, David=10, Loo=2 17:04:14 MD notified again 17:05:43 HR=92 bpm, JZPR=942/70 mmhg, SpO2=96.0 %, Resp=8 B/min, Pain=1, David=10, Loo=2 17:09:04 MD arrived. 17:10:44 HR=94 bpm, YCQH=512/70 mmhg, SpO2=97.0 %, Resp=8 B/min, Pain=1, David=10, Loo=2 Time Out. Correct patient, correct procedure, correct physician, power injector not loaded with contrast with surgical 17:13:07 team present. Time Out Concurred by MD and individual staff in procedure. 17:13:15 Case Start 17:13:17 Verbal Stimulation=2 Physical Stimulation=2 Airway=2 Respiration=2 TOTAL=8. (0=absent, 1=li mited, 2=present) 17:13:26 20 mL 1% XYLOCAINE given by Renzo Cortez in Left Groin via Subcutaneous. 17:13:40 1 mg VERSED given by Flip Srinivasan, WHITLEY in Left Antecubital via Peripheral IV. 17:14:44 50 mcg FENTANYL given by Flip Srinivasan, WHITLEY via Peripheral IV. 17:15:43 GF=014 bpm, ZVTE=096/70 mmhg, SpO2=95 %, Resp=8 B/min, Pain=1, David=10, Loo=2 17:16:14 Access site was Left Femoral Artery. 17:16:22 A wire was inserted via Fem Art (left). 17:16:37 A SHEATH, FR6.5 PRELUDE 11CM FR 6.5 was advanced into the Fem Art (left) using the Percutan eous technique. A PIGTAIL ANG. 145 INFINITI CATHETER FR 6 was advanced over a wire. OMNIPAQUE, 350 MG, 100ML 10 0ML was 17:17:19 used for injections. Recorded Pressure: LV, HR=99, Condition=Condition 1 17:18:21 (Left Ventricle) LV 108/14/31 17:18:54 The LV was injected at 10 cc/sec for a total of 20. OMNIPAQUE, 350 MG, 100ML 100ML used. Recorded Pressure: LV, Ao, HR=99, Condition=Condition 1 17:19:51 (Left Ventricle) LV 109/13/33, (Aorta) Ao 110/54/80 17:20:07 Catheter was removed A JL 4.0 INFINITI CATHETER FR 6 was advanced over a wire. OMNIPAQUE, 350 MG, 100ML 100ML was us ed for 17:20:11 injections. 17:20:44 HR=97 bpm, CCNH=382/70 mmhg, SpO2=97.0 %, Resp=8 B/min, Pain=1, David=10, Loo=2 17:22:22 The LCA was injected and visualized at various angles. OMNIPAQUE, 350 MG, 100ML 100ML used . 10 mcg/min NITROGLYCERIN DRIP given by Flip Srinivasan, WHITLEY via Peripheral IV. Pump/Drip Flow = 3 ml/hr using D5W 17:25:40 with a concentration of 50 mg in 250 ml. 17:25:41 CB=894 bpm, MPIP=704/70 mmhg, SpO2=98.0 %, Resp=8 B/min, Pain=1, David=10, Loo=2 17:27:47 Catheter was removed A 3DRC INFINITI CATHETER FR 6 was advanced over a wire. OMNIPAQUE, 350 MG, 100ML 100ML was use d for 17:27:49 injections. 17:29:37 The RCA was injected and visualized at various angles. OMNIPAQUE, 350 MG, 100ML 100ML use d. 17:29:46 Catheter was removed 17:30:25 0.4 mg NITROGLYCERIN S/L given by Flip Srinivasan, RN via Sublingual. 17:30:39 Sheath exchanged for intra-aortic balloon insertion. 17:30:44 JK=572 bpm, OTKS=893/69 mmhg, SpO2=98.0 %, Resp=8 B/min, Pain=1, David=10, Loo=2 An BALLOON, FR8 50CC SENSATION PLUS FR 8 50CC was advanced to the descending aorta. Proper orlando cement was 17:31:29 confired under fluoroscopy and the balloon was sutured in place. Ratio = ~RATIO~. Augmented BP ~SYS~/~MIKE~ 17:32:20 0.4 mg NITROGLYCERIN S/L given by Flip Srinivasan, RN via Sublingual. 17:32:47 50 mcg FENTANYL given by Flip Srinivasan, RN in Left Antecubital via Peripheral IV. 17:35:38 dr nagy arrived to view films 17:35:43 UU=599 bpm, BEMU=610/69 mmhg, SpO2=95.0 %, Resp=8 B/min, Pain=1, David=10, Loo=2 17:40:44 HR=99 bpm, BEBH=466/75 mmhg, SpO2=94.0 %, Resp=8 B/min, Pain=1, David=10, Loo=2 17:42:30 balloon pump sutured by justa perez 17:45:43 HR=92 bpm, LUSK=367/76 mmhg, SpO2=96.0 %, Resp=8 B/min, Pain=1, David=10, Loo=2 17:51:58 HR=95 bpm, DHIN=818/79 mmhg, SpO2=97.0 %, Resp=8 B/min, Pain=1, David=10, Loo=2 1000 units/hr HEPARIN DRIP given by Flip Srinivasan, WHITLEY via Peripheral IV. Pump/Drip Flow = 10 ml/hr using D5W with 17:55:44 [place] [address] units in 250 ml. Ordered by Renzo Cortez. 17:55:52 Vitals capture stopped. End Study - Contrast Media Used In Study Contrast Total Opened (mL) Total Used (mL) Total Wasted (mL) Omnipaque 100 100 0 End Study - Maximum Contrast Load Max Contrast Load (mL) 347.3 End Study - Radiation Exposure Fluoro Time (minutes) 4.1 End Study - Patient Disposition Complications Transferred To Interventional Outcome No Critical Care Bed No attempt made
[2017-03-28] MEDS ORDERED: SODIUM CHLOR 0.9% 1000 ML INJ 1,000 ML IV SCH (18:01)
[2017-03-28 18:15] VITALS: BP_SYST 124; BP_SYST 136; BP_DIAS 49; PULSE 89; RESP 18; TEMP 98.5; O2SAT 94
[2017-03-28] MEDS ORDERED: HEPARIN-D5W 25,000 U/250 ML 250 ML IV PRN (18:15)
[2017-03-28] MEDS ORDERED: SODIUM CHLORIDE 0.9% FLUSH 10 ML FLUSH IV FLUSH PRN ×2 (18:15→18:30)
--- NOTE | 2017-03-28 18:19 | MA ---
cc: YURIDIA GEE M.D., ALAN S. M.D. DATE 03/28/2017 PROCEDURE PERFORMED Emergency cardiac catheterization including left heart catheterization, left ventriculography, coronary angiography, intraaortic balloon placement. Left femoral access. DESCRIPTION OF PROCEDURE The patient was brought to the cardiac label operator under emergency conditions. He was not having angina when he arrived. Left groin was prepped and draped in sterile fashion. He received 1 mg of Versed and 50 mcg of fentanyl IV for sedation. Using 1% lidocaine for local anesthesia the left femoral artery was punctured on the first attempt and a 6-Panamanian sheath placed. Left ventricular pressure was then recorded using a pigtail catheter followed by left ventriculography and then a pullback. Left coronary angiography was completed using a left 4 Justina catheter. Right coronary angiography was completed using a 3DRC catheter. At the end of the procedure the sheath in the left groin was exchanged over a wire to a intraaortic balloon pump. Just before this he started having chest pain and dropped his ST segments. He received two sublingual nitroglycerin sprays. As soon as the balloon pump was activated his chest pain went away. The ST segments significantly improved. Dr. Berman has been here to evaluate the patient and is planning open heart bypass probably first case in the morning. FINDINGS 1. Hemodynamics. Left ventricular pressure was 109/13 with an end-diastolic pressure markedly elevated at 33. Aortic pressure was 110/54 with a mean of 80. 2. Left ventriculography. Ejection fraction was about 50% with no focal wall motion abnormalities. 3. Coronary angiography. The left main coronary artery is a large vessel with a high-grade focal 90% distal stenosis. The proximal LAD has 20% irregularities. There is a stent in the proximal and midportion of the LAD. There is about 70% stenosis between these two. The distal LAD is suitable for grafting. There is two ramus intermediate branches visualized, one of these is very small and has high-grade disease, near 90%. The other ramus has about 30% proximal disease and it appears to be suitable for bypass grafting. The right coronary artery is dominant. The mid vessel bifurcates to a very large marginal branch which supplies the majority of the posterior descending artery branch. The continuation of the main right coronary artery is very small. There is a 90% mid and 90% distal right coronary stenosis. The posterolateral branch of the right coronary artery is very small. There is a segment of the distal right coronary artery before the AV groove that could be bypassed but it looks small and would not provide much perfusion. The major marginal branch is supplying most of the blood flow to the inferior wall. CONCLUSION 1. Elevated left ventricular end-diastolic pressure due to ischemia. 2. Preserved left ventricular systolic function. 3. Critical left main and multivessel coronary artery disease. RECOMMENDATIONS Continue intraaortic balloon pump, IV nitroglycerin and IV heparin with plans for bypass surgery probably first case in the morning. The LAD obtuse marginal branch and ramus intermediate branches are all good targets. The distal right coronary artery is small. There is additional diseased ramus that also appears very small. Yuridia Gee MD VEW/KK /5:59 PM /6:10 PM
[2017-03-28] MEDS: MORPHINE SULFATE 4 MG/ML INJ IV PUSH PRN ×2 (18:28→21:00)
[2017-03-28] MEDS ORDERED: PAPAVERINE INJ 60 MG, NITROGLYCERIN INJ 100 MCG, DILTIAZEM INJ 100 MG in SODIUM CHLORID... IRRIGATION SCH (18:30)
[2017-03-28] MEDS ORDERED: METOPROLOL TARTRATE 25 MG TAB PO SCH ×3 (18:30→22:00)
[2017-03-28] MEDS ORDERED: CHLORHEXIDINE GLUCONATE 4% SOLN 120 ML BTL TOPICAL SCH (18:30)
[2017-03-28] MEDS ORDERED: CEFAZOLIN INJ 500 MG in SODIUM CHLORIDE 0.9% IRR BTL 500 ML IRRIGATION SCH (18:30)
[2017-03-28] MEDS ORDERED: DEXTROSE 50% IN WATER 50 ML SYRINGE IV PUSH PRN (18:30)
[2017-03-28] MEDS ORDERED: INSULIN REGULAR (IV INFUSION) 100 UNITS in SODIUM CHLORIDE 0.9% INJ 99 ML IV PRN (18:30)
[2017-03-28] MEDS ORDERED: ceFAZolin 2 GM PREMIX 50 ML IV SCH (18:30)
--- NOTE | 2017-03-28 18:39 | PD.CAR.PN ---
CVT Progress Note Subjective/Hospital Course: Risk Model and Variables - STS Adult Cardiac Surgery Database Version 2.81 RISK SCORES About the STS Risk Calculator Procedure: CAB Only Risk of Mortality: 1.573% Morbidity or Mortality: 20.332% Long Length of Stay: 6.244% Short Length of Stay: 40.344% Permanent Stroke: 1.037% Prolonged Ventilation: 16.135% DSW Infection: 0.392% Renal Failure: 3.244% Reoperation: 6.85% Objective: Vital Signs Date Time Temp Pulse Resp B/P (MAP) Pulse Ox O2 Delivery O2 Flow Rate FiO2 03/28/17 16:15 91 16 136/68 (90) 97 Nasal Cannula 2 03/28/17 16:00 80 16 142/67 (92) 97 Nasal Cannula 2 03/28/17 15:45 79 16 137/65 (89) 98 Nasal Cannula 2 03/28/17 15:30 84 16 152/70 (97) 98 Nasal Cannula 2 03/28/17 15:15 80 16 170/75 (106) 98 Nasal Cannula 2 03/28/17 15:00 79 16 146/70 (95) 100 Nasal Cannula 2 03/28/17 14:45 80 16 150/67 (94) 100 Nasal Cannula 2 03/28/17 14:42 97.8 80 16 151/71 (97) 100 Nasal Cannula 2 03/28/17 09:39 97.7 51 16 142/67 (92) 97 Labs: Laboratory Tests Test 03/28/17 09:20 03/28/17 15:15 White Blood Count 4.5 TH/MM3 (4.0-11.0) Red Blood Count 4.06 MIL/MM3 (4.50-5.90) Hemoglobin 13.4 GM/DL (13.0-17.0) Hematocrit 38.9 % (39.0-51.0) Mean Corpuscular Volume 95.7 FL (80.0-100.0) Mean Corpuscular Hemoglobin 33.0 PG (27.0-34.0) Mean Corpuscular Hemoglobin Concent 34.5 % (32.0-36.0) Red Cell Distribution Width 13.7 % (11.6-17.2) Platelet Count 199 TH/MM3 (150-450) Mean Platelet Volume 8.1 FL (7.0-11.0) Neutrophils (%) (Auto) 59.8 % (16.0-70.0) Lymphocytes (%) (Auto) 22.9 % (9.0-44.0) Monocytes (%) (Auto) 8.8 % (0.0-8.0) Eosinophils (%) (Auto) 7.5 % (0.0-4.0) Basophils (%) (Auto) 1.0 % (0.0-2.0) Neutrophils # (Auto) 2.7 TH/MM3 (1.8-7.7) Lymphocytes # (Auto) 1.0 TH/MM3 (1.0-4.8) Monocytes # (Auto) 0.4 TH/MM3 (0-0.9) Eosinophils # (Auto) 0.3 TH/MM3 (0-0.4) Basophils # (Auto) 0.0 TH/MM3 (0-0.2) CBC Comment DIFF FINAL Differential Comment Prothrombin Time 11.9 SEC (9.8-11.6) Prothromb Time International Ratio 1.1 RATIO Activated Partial Thromboplast Time 26.2 SEC (24.3-30.1) Blood Urea Nitrogen 19 MG/DL (7-18) Creatinine 1.13 MG/DL (0.60-1.30) Random Glucose 91 MG/DL (74-106) Calcium Level 9.5 MG/DL (8.5-10.1) Sodium Level 140 MEQ/L (136-145) Potassium Level 4.6 MEQ/L (3.5-5.1) Chloride Level 106 MEQ/L (98-107) Carbon Dioxide Level 28.0 MEQ/L (21.0-32.0) Anion Gap 6 MEQ/L (5-15) Estimat Glomerular Filtration Rate 65 ML/MIN (>89) Total Creatine Kinase 76 U/L (39-308) Troponin I 0.16 NG/ML (0.02-0.05) Result Diagram: 03/28/1791903/28/17919 Dian Berman MD Mar 28, 2017 18:39
[2017-03-28 19:00] VITALS: BP 138/63; PULSE 88; RESP 15; TEMP 98.8; O2SAT 97
[2017-03-28] MEDS: NITROGLYCERIN-D5W 50 MG/250 ML 250 ML IV PRN (19:00)
--- NOTE | 2017-03-28 19:53 | RADRPT ---
EXAM DATE/TIME: 03/28/2017 19:07 [facility] COMPARISON: No previous studies available for comparison. INDICATIONS : Pre op cardiac surgery. MEDICAL HISTORY : Oral cancer. Peripheral neuopathy. Coronary artery disease. Peripheral vascular disease. Myocardial i nfarction. Fatty liver disease. BPH. SURGICAL HISTORY : Coronary artery stent. Right femoral endarterectomy. Right shoulder surgery. Left elbow surgery. Le ft knee replacement. ENCOUNTER: Initial ACUITY: 1 day PAIN SCORE: 4/10 LOCATION: Bilateral legs. GREATER SAPHENOUS VEIN THIGH: PROXIMAL: Right 3 mm Left 4 mm MID: Right 2 mm Left 3 mm DISTAL: Right 2 mm Left 2 mm CALF: PROXIMAL: Right Non-visualized Left 2 mm MID: Right Non-visualized Left Non-visualized DISTAL: Right Non-visualized Left Non-visualized FINDINGS: The venous system of the lower extremities are patent by color Doppler imaging. Measurements of the leg veins (in mm) are listed above. CONCLUSION: 1. The greater saphenous vein is patent within the thighs bilaterally. Lack of visualization below th e level of the knee on the right and below the mid calf on the left. Bulmaro Christiansen Jr., MD on March 28, 2017 at 19:49 Board Certified Radiologist. This report was verified electronically.
--- NOTE | 2017-03-28 20:10 | RADRPT ---
EXAM DATE/TIME: 03/28/2017 18:58 [facility] COMPARISON: No previous studies available for comparison. INDICATIONS : Pre op cardiac surgery. MEDICAL HISTORY : Oral cancer. Peripheral neuopathy. Coronary artery disease. Peripheral vascular disease. Myocardial i nfarction. Fatty liver disease. BPH. SURGICAL HISTORY : Coronary artery stent. Right femoral endarterectomy. Right shoulder surgery. Left elbow surgery. Left knee replacement. ENCOUNTER: Initial ACUITY: 1 day PAIN SCORE: 4/10 LOCATION: Bilateral legs. TECHNIQUE: Venous ultrasound of the left and right leg was performed from the inguinal ligament to the proximal calf. Real-time, color Doppler and spectral tracing, compression and augmentation techniques were us ed. FINDINGS: RIGHT LEG: A bandage obscures the evaluation of the distal external iliac vein and common femoral vein. There is normal compressibility of the deep venous system from the proximal superficial femoral vein region t o the proximal calf. No echogenic clot is seen in the lumen of the common femoral, femoral, poplitea l, and posterior tibial veins. There is a normal response of the venous system to proximal and dista l augmentation and respiration. LEFT LEG: There is normal compressibility of the deep venous system from the inguinal region to the proximal ca lf. No echogenic clot is seen in the lumen of the common femoral, femoral, popliteal, and posterior tibial veins. There is a normal response of the venous system to proximal and distal augmentation an d respiration. CONCLUSION: 1. A bandage obscures the right groin. Otherwise, no DVT. Bulmaro Christiansen Jr., MD on March 28, 2017 at 20:02 Board Certified Radiologist. This report was verified electronically.
[2017-03-28 20:23] VITALS: O2SAT 95
[2017-03-28] MEDS: ATORVASTATIN 40 MG TAB PO SCH (20:55)
[2017-03-28] MEDS ORDERED: ONDANSETRON HCL 4 MG/2 ML VIAL ONE (20:57)
[2017-03-28] MEDS ORDERED: NON-FORMULARY DRUG (Fish Oil-Cholecalciferol (Omega-3 Fish Oil/Vitamin) 1 CAP) PO SCH (21:00)
[2017-03-28] MEDS ORDERED: SODIUM CHLORIDE 0.9% FLUSH 10 ML FLUSH IV FLUSH SCH ×2 (21:00)
[2017-03-28] MEDS ORDERED: FAMOTIDINE 20 MG TAB PO SCH (21:00)
[2017-03-28] MEDS: MUPIROCIN 2% OINT 1 APPLIC/GM SYR EACH NARE SCH (21:04)
[2017-03-28 21:53] LABS: HEMATOCRIT 35.5 % (39.0-51.0); MEAN CELL VOLUME 96.5 FL (80.0-100.0); MEAN CORPUSCULAR HGB CONC 34.2 % (32.0-36.0); PLATELET COUNT 163 TH/MM3 (150-450); RED BLOOD COUNT 3.68 MIL/MM3 (4.50-5.90); RED CELL DISTRIBUTION WIDTH 13.7 % (11.6-17.2); REVIEW FLAG FINAL; WHITE BLOOD COUNT 9.5 TH/MM3 (4.0-11.0)
[2017-03-28] MEDS ORDERED: ONDANSETRON HCL 4 MG/2 ML VIAL IV PUSH PRN (22:00)
[2017-03-28 22:03] LABS: APTT (PATIENT) 52.5 SEC (24.3-30.1); INTERNATIONAL NORMALIZED RATIO 1.1 RATIO
[2017-03-28 22:09] LABS: BACTERIA, URINE RARE /hpf; BLOOD, URINE MOD (NEG); COMMENT (UR) CULTURE INDICATED; CULTURE IF INDICATED CULTURE INDICATED; GLUCOSE,URINE NEG (NEG); KETONE, URINE 10 mg/dL (NEG); MUCUS URINE FEW /lpf (OCC); NITRITE,URINE NEG (NEG); PH, URINE 5.5 (5.0-8.5); URINE COLOR YELLOW (YELLW/STRAW)
[2017-03-28 23:00] VITALS: PULSE 76; RESP 16
[2017-03-29] VITALS (12 sets, daily range): BP systolic 77–165; BP diastolic 32–79; PULSE 64–87; RESP 10–20; TEMP 97.3–98.2; O2SAT 95–99
[2017-03-29] MEDS: MORPHINE SULFATE 4 MG/ML INJ IV PUSH PRN ×2 (00:07→04:09)
[2017-03-29] MEDS ORDERED: HEPARIN SODIUM - IV 10,000 UNITS/10 ML VIAL IV PUSH PRN ×2 (00:15)
[2017-03-29 01:33] LABS: BASOPHIL % 0.3 % (0.0-2.0); EOSINOPHIL % 0.3 % (0.0-4.0); HEMATOCRIT 35.9 % (39.0-51.0); HEMO FLAGS DIFF FINAL; LYMPH % 4.2 % (9.0-44.0); LYMPHOCYTE # 0.3 TH/MM3 (1.0-4.8); MEAN CELL VOLUME 96.6 FL (80.0-100.0); MEAN CORPUSCULAR HEMOGLOBIN 32.4 PG (27.0-34.0); MEAN CORPUSCULAR HGB CONC 33.5 % (32.0-36.0); MONO % 5.1 % (0.0-8.0); NEUT % 90.1 % (16.0-70.0); PLATELET COUNT 183 TH/MM3 (150-450); RED BLOOD COUNT 3.72 MIL/MM3 (4.50-5.90); RED CELL DISTRIBUTION WIDTH 13.9 % (11.6-17.2); WHITE BLOOD COUNT 7.8 TH/MM3 (4.0-11.0)
[2017-03-29 01:44] LABS: APTT (PATIENT) 46.9 SEC (24.3-30.1)
[2017-03-29 01:54] LABS: BICARBONATE 28.2 MEQ/L (21.0-32.0); POTASSIUM 4.4 MEQ/L (3.5-5.1)
[2017-03-29] MEDS ORDERED: HEPARIN SODIUM - SQ 10,000 UNITS/ML VIAL ONE (06:07)
[2017-03-29] MEDS ORDERED: ceFAZolin 2 GM PREMIX 50 ML ONE (06:08)
[2017-03-29] MEDS ORDERED: VANCOMYCIN HCL 1000 MG VIAL ONE (06:08)
[2017-03-29] MEDS ORDERED: DEXMEDETOMIDINE HCL 200 MCG/2 ML VIAL ONE (06:22)
[2017-03-29] MEDS ORDERED: ARTIFICIAL TEARS OPTH OINT 3.5 APPLIC/3.5 GM TUBO ONE (06:46)
--- NOTE | 2017-03-29 06:49 | MP ---
cc: OSMANI TRAN MD DATE OF SURGERY 03/28/2017 PREOPERATIVE DIAGNOSIS Right lower extremity claudication, peripheral arterial occlusive disease. POSTOPERATIVE DIAGNOSIS Right lower extremity claudication, peripheral arterial occlusive disease. PROCEDURE 1. Right common femoral endarterectomy 2. Right lower extremity angiogram 3. Right SFA orbital atherectomy and angioplasty MEDICATIONS Osmani Tran MD [employer] SURGEON Yuan Zaldivar ANESTHESIA General INDICATIONS Mr. Abbott is a 66-year-old gentleman with right lower extremity claudication. He has a lifestyle-limiting claudication and has failed conservative therapies. He was taken to the operating room for hybrid therapy including groin reconstruction and angiogram with endovascular intervention. DESCRIPTION Informed consent was obtained from the patient. He was taken to the operating room and placed supine on the operating table and an appropriate time-out was taken to ensure the patient's identity, operative site and planned procedure. The administration of 2 grams of Ancef was initiated prior to skin incision and will be discontinued after a single preoperative dose. Everyone in the room agreed with the time-out and we proceeded. He was prepped from his nipples to his toes. An incision was made in the patient's right groin, carried down through the subcutaneous tissue with electrocautery. The common femoral artery was dissected free all the way up to the external iliac artery and both circumflex, iliac, and femoral vessels. We dissected down to the bifurcation of the profunda and superficial femoral artery. The patient was systemically heparinized and then proximal and distal control was obtained with profunda clamps. A longitudinal arteriotomy was made going from the proximal common femoral artery down onto the SFA. The artery was endarterectomized without difficulty and both profunda branches were widely patent. A bovine pericardial patch was brought up on the field and sewn on with running 5-0 Prolene suture. At the completion, it was flushed and noted to be hemostatic. The clamps were released and there was a wonderful pulse in the patch and in the proximal SFA and profunda arteries. A 21 gauge micropuncture needle was used to access the patch heading in an antegrade fashion. This was exchanged using Seldinger technique for a micropuncture sheath through which a 0.035 Glidewire was advanced down the SFA and the micropuncture sheath was exchanged for a 6-Lithuanian 23 cm sheath, again pointed down the SFA. The Glidewire and Berenstein catheter were used to navigate down to the above-knee popliteal artery and the angiogram confirmed we were indeed in the above-knee popliteal artery. The Glidewire was exchanged for a Viper wire and the Berenstein catheter was removed. Over the Viper wire and through the sheath, the CSI orbital atherectomy device was introduced and the entire SFA was atherectomized without difficulty. The device was removed and a 5-mm angioplasty balloon was used to angioplasty the entire SFA. At the completion, angiogram showed excellent result without any recoil extravasation and good in-line flow to the foot. The wire, catheter, and sheath were removed from the patch and the patch otomy was closed with a 6-0 Prolene suture. There is a nice palpable pulse in the foot. The heparin reversed with protamine. The wound was irrigated, made hemostatic, infiltrated with Marcaine and closed with 2-0 Polysorb, 3-0 Polysorb and 4-0 Monocryl. Sponge and needle counts were correct at the end of the case. I was present and scrubbed for the entire procedure. MD TOVA Cifuentes/LINDSAY /5:37 AM /6:36 AM
[2017-03-29] MEDS ORDERED: SODIUM CHLORIDE 0.9% INJ 50 ML ONE (06:53)
[2017-03-29] MEDS ORDERED: IOHEXOL 350 MG/ML 100 ML BTL (for Cath Lab) OTHER ONE (07:20)
[2017-03-29] MEDS: INDOMETHACIN 50 MG CAP PO SCH (09:00)
[2017-03-29] MEDS: MUPIROCIN 2% OINT 1 APPLIC/GM SYR EACH NARE SCH ×2 (09:00→21:00)
[2017-03-29] MEDS ORDERED: ASPIRIN 325 MG TAB PO SCH (09:00)
[2017-03-29] MEDS: MULTIVITAMIN TAB PO SCH (09:00)
[2017-03-29] MEDS ORDERED: [UNRECOGNIZED DRUG - OTHER] PO SCH (09:00)
[2017-03-29] MEDS ORDERED: ASPIRIN 81 MG CHEW TAB PO SCH (09:00)
[2017-03-29] MEDS ORDERED: LISINOPRIL 20 MG TAB PO SCH (09:00)
--- NOTE | 2017-03-29 09:56 | EKG ---
Date Performed: 03/28/2017 Time Performed: 16:14:49 PTAGE: 66 years EKG: Sinus rhythm WITH MARKED SINUS ARRHYTHMIA POSSIBLE INFERIOR MYOCARDIAL INFARCTION , PROBABLY OLD ST DEPRESSION, C ONSIDER SUBENDOCARDIAL INJURY ABNORMAL ECG PREVIOUS TRACING : 03/28/2017 15.02 DOCTOR: Yao Wilkinson Interpretating Date/Time 03/29/2017 09:55:55
--- NOTE | 2017-03-29 09:59 | EKG ---
Date Performed: 03/28/2017 Time Performed: 15:02:51 PTAGE: 66 years EKG: Sinus rhythm POSSIBLE LEFT ATRIAL ENLARGEMENT POSSIBLE INFERIOR MYOCARDIAL INFARCTION , PROBABLY OLD ST DEPRESSIO N, CONSIDER SUBENDOCARDIAL INJURY ABNORMAL ECG PREVIOUS TRACING : 02/21/2017 06.56 DOCTOR: Yao Wilkinson Interpretating Date/Time 03/29/2017 09:57:30
[2017-03-29] MEDS ORDERED: ceFAZolin INJ 1,000 MG VIAL ONE (10:55)
--- NOTE | 2017-03-29 11:21 | PD.CAR.PN ---
CVT Progress Note Subjective/Hospital Course: 66-year-old male, known to have coronary artery disease. He had an inferior STEMI in February 2006 and had a 3.0 x 28 mm Cypher stent to the right coronary artery then in March 2016 underwent stenting of the proximal LAD with a 3.0 x 18 mm drug-eluting stent, along with a 2.5 x 18 mm drug-eluting stent of the mid-LAD and balloon angioplasty of the diagonal branch. He underwent right common femoral endarterectomy 03/28 , after waking up from surgery developed jaw pain and noted to have significant ST changes on the monitor postop 12-lead EKG is very abnormal with more than [address] depression V3-V6 but also has some subtle changes in 1 and AVL and the inferior leads. 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 Elevated left ventricular end-diastolic pressure due to ischemia, Preserved left ventricular systolic function EF 50%, Critical left main and multivessel coronary artery disease, IABP was placed and started on Heparin and NTG / he is undergoing Coronary artery bypass grafting today PMH: Includes past alcohol abuse, Coronary artery disease/ NH/ stents , Renal cyst, Fatty liver disease, Gout, Hyperlipidemia, Hypertension, Neuropathy, Cancer of the soft palate, treated with radiation therapy, Peripheral arterial disease. Benign prostatic hypertrophy, Right lower extremity claudication, peripheral arterial occlusive disease. surgery: 03/28 Right common femoral endarterectomy, Right lower extremity angiogram, Right SFA orbital atherectomy and angioplasty by Dr Tran Objective: Vital Signs Date Time Temp Pulse Resp B/P (MAP) Pulse Ox O2 Delivery O2 Flow Rate FiO2 03/29/17 06:10 121/51 (110) 03/29/17 05:38 114/50 (105) 03/29/17 04:35 98.2 76 14 141/58 (85) 97 106/47 (66) 03/29/17 04:28 106/47 (91) 03/29/17 03:22 65 03/29/17 03:08 103/48 (86) 03/29/17 02:00 115/55 (89) 03/29/17 01:27 Arterial Line 03/29/17 01:18 120/52 (103) 03/29/17 00:00 127/57 (111) 03/29/17 00:00 97.9 73 16 165/79 (107) 96 Arterial Line 03/28/17 23:48 139/61 (127) 03/28/17 23:38 14 03/28/17 23:00 76 16 03/28/17 23:00 76 03/28/17 22:00 101/48 (86) 03/28/17 21:00 120/56 (99) 03/28/17 20:23 95 Nasal Cannula 2.00 03/28/17 20:00 92/47 (82) 03/28/17 19:00 98.8 88 15 138/63 (88) 97 Arterial Line 03/28/17 19:00 88 03/28/17 19:00 89/45 (75) 03/28/17 19:00 88 138/63 03/28/17 18:15 98.5 89 18 124/49 (74) 94 136/49 (78) 03/28/17 18:15 103/49 (100) 03/28/17 18:15 89 03/28/17 16:15 91 16 136/68 (90) 97 Nasal Cannula 2 03/28/17 16:00 80 16 142/67 (92) 97 Nasal Cannula 2 03/28/17 15:45 79 16 137/65 (89) 98 Nasal Cannula 2 03/28/17 15:30 84 16 152/70 (97) 98 Nasal Cannula 2 03/28/17 15:15 80 16 170/75 (106) 98 Nasal Cannula 2 03/28/17 15:00 79 16 146/70 (95) 100 Nasal Cannula 2 03/28/17 14:45 80 16 150/67 (94) 100 Nasal Cannula 2 03/28/17 14:42 97.8 80 16 151/71 (97) 100 Nasal Cannula 2 Labs: Laboratory Tests Test 03/29/17 01:15 White Blood Count 7.8 TH/MM3 (4.0-11.0) Red Blood Count 3.72 MIL/MM3 (4.50-5.90) Hemoglobin 12.1 GM/DL (13.0-17.0) Hematocrit 35.9 % (39.0-51.0) Mean Corpuscular Volume 96.6 FL (80.0-100.0) Mean Corpuscular Hemoglobin 32.4 PG (27.0-34.0) Mean Corpuscular Hemoglobin Concent 33.5 % (32.0-36.0) Red Cell Distribution Width 13.9 % (11.6-17.2) Platelet Count 183 TH/MM3 (150-450) Mean Platelet Volume 7.7 FL (7.0-11.0) Neutrophils (%) (Auto) 90.1 % (16.0-70.0) Lymphocytes (%) (Auto) 4.2 % (9.0-44.0) Monocytes (%) (Auto) 5.1 % (0.0-8.0) Eosinophils (%) (Auto) 0.3 % (0.0-4.0) Basophils (%) (Auto) 0.3 % (0.0-2.0) Neutrophils # (Auto) 7.0 TH/MM3 (1.8-7.7) Lymphocytes # (Auto) 0.3 TH/MM3 (1.0-4.8) Monocytes # (Auto) 0.4 TH/MM3 (0-0.9) Eosinophils # (Auto) 0.0 TH/MM3 (0-0.4) Basophils # (Auto) 0.0 TH/MM3 (0-0.2) CBC Comment DIFF FINAL Differential Comment Activated Partial Thromboplast Time 46.9 SEC (24.3-30.1) Blood Urea Nitrogen 15 MG/DL (7-18) Creatinine 1.05 MG/DL (0.60-1.30) Random Glucose 133 MG/DL (74-106) Calcium Level 8.4 MG/DL (8.5-10.1) Sodium Level 139 MEQ/L (136-145) Potassium Level 4.4 MEQ/L (3.5-5.1) Chloride Level 105 MEQ/L (98-107) Carbon Dioxide Level 28.2 MEQ/L (21.0-32.0) Anion Gap 6 MEQ/L (5-15) Estimat Glomerular Filtration Rate 70 ML/MIN (>89) Total Creatine Kinase 46 U/L (39-308) Result Diagram: 03/29/1711403/29/17114 (1) Hyperlipemia (2) Coronary artery disease (3) PAD (peripheral artery disease) (4) s/p Right common femoral endarterectomy (5) History of BPH (6) S/P CABG (coronary artery bypass graft) Leonora Vasquez 8, 2017 11:21
--- NOTE | 2017-03-29 11:29 | HHI.FF ---
Face to Face Verification Diagnosis: (1) Coronary artery disease (2) Hyperlipemia (3) PAD (peripheral artery disease) (4) s/p Right common femoral endarterectomy (5) S/P CABG (coronary artery bypass graft) (6) Hyperlipidemia (7) Peripheral neuropathy Physical Therapy Order: Evaluate and Treat Home Health Nursing Order: Signs/symptoms of disease process Medication education-adverse effect Wound care and dressing changes Nursing assessment with vital signs Instructions: Heart and Vascular Surgery patients *Special attention to sternal dressing Mandatory frequency Assess and evaluation, 4 days in a row The next week 3X week 2 times a week for 4 weeks 1 time a week for 5 weeks Schedule Heart and Vascular patients for full 60 day certification period Initial visit Review Open Heart Surgery Discharge Instructions (Sternal precautions, Activity, Elastic hose, Incision care, Driving, Incentive spirometry, Smoking, [place], Work and other) Need Betadine to paint incision Medication reconciliation Importance of follow up care/ check on appointments Make calendar record temperature daily When to call [facility] nurse, review instructions, phone list Incentive Spirometry, demonstration Visit 1- Begin discharge instruction for patient family and/ or caregiver using teach back method- Signs and symptoms of infection Disease characteristics Medicines and side effects Foods and nutrition/ appetite Infection control/ hand washing/ hygiene Visit 2- Continue teaching Discharge instructions- include additional information on smoking cessation , sternal dressing (sternal vac) Visit 3- Continue teaching- Cough and deep breathing, incision monitoring. Choose my plate Visit 4- Continue teaching- Discuss limitations Discuss how they are feeling Discuss progress toward goals Remaining visits- continue teaching and monitoring PREVENA Single Use Negative Wound Therapy System Caregiver Instruction Sheet 1. A Prevena dressing system was applied to the chest incision during surgery , to promote wound healing. It works via a suction device (negative pressure wound therapy) to remove low to moderate levels of exudate (drainage) and infectious materials. We recommend that the device stay in place for up to seven days, from day of surgery. 2. Day of Surgery___03/29/17 Day of Removal ___04/05/17 3. The dressing should only be removed by a health day care provider. Please arrange removal of device to coincide with Home Health visit and or with Nursing staff at Rehab 4. If skin reddening or irritation of skin occurs, or excessive drainage, please notify the Cardiovascular Surgeons office at [phone]. 5. Light showering is permissible; however the pump should be disconnected and placed in safe location, where it will not get wet. The dressing should not be exposed to direct spray or submerged in water. No bath tub / shower only. Ensure the end of the tubing attached to the dressing is facing down so that water does not enter the top of the tube. 6. To remove Prevena dressing: press purple button to turn off device / remove the suction. Then disconnect the tubing from the pump. The fixation strips should be stretched away from the skin and the dressing lifted at one corner and peeled back until it has been fully removed. 7. After removal, it is ok to shower daily using liquid dial soap and clean wash cloth, rinse and pat dry, and leave incision open to air dry. For any concerns regarding Prevena dressing, and or wounds, please contact Brii Reid, patient navigator at [phone] or notify the Cardiovascular Surgeons office at [phone]. Incentive spirometry Q1 hr x 10, while awake, also use acapella device hourly whole awake Sternal Breast Bone Precautions: NO pushing or pulling, ( pt must use sternal pillow to support chest with all activities and with coughing ( takes up to 3 months breast bone to heal ) Daily incision care: ok to shower daily, no tub bath. Wash all incisions with liquid dial soap, clean wash cloth to each site, rinse and pat dry. Observe for any signs of infection, such as drainage which is dark yellow, yun, green or foul smelling. Immediately report to the surgeon any drainage from the chest incision, or legs, and for any abnormal drainage from the chest tube sites. Notify surgeon if any temp >101.5 degrees F. When specialty dressing removed/ or if you do not have one, continue to shower daily as above, then rinse and pat incision dry and paint with betadine daily x 5 days. Allow steri strips to fall off if you have any. Avoid lotions, creams, salves, oils, etc. for the first month Please see attached forms for additional instructions regarding post Open Heart specialty wound vacuum dressings. BENJAMÍN or Prevena , Dressing to be removed by Nursing staff on _04/05/17 F/U appointment: as per DC instructions: PCP in 2 weeks, CV surgeon 2 weeks, Marketing Services Coordinator 3-4 weeks For any questions regarding incisions/ dressing / meds / post op care or above Symptoms, Monday 8am-5pm Heart & Vascular Surgery Office ( Dr. Berman & Dr. Cuevas), After Hours / Nights (5pm -8am) Weekends and Holidays Please call [facility] ([facility]) Charge Nurse I have seen patient Ashish Abbott on 03/29/17. My clinical findings support the need for the requested home health care services because: Deconditioned w/ increased weakness I certify that my clinical findings support that this patient is homebound because: Post-op weakness Leonora Vasquez Mar 29, 2017 11:29
[2017-03-29] MEDS ORDERED: LACTATED RINGER'S 1000 ML INJ 500 ML IV PRN (11:38)
[2017-03-29] MEDS ORDERED: DOBUTamine PREMIX DRIP 250 ML IV SCH (11:38)
[2017-03-29] MEDS ORDERED: CALCIUM CHLORIDE 10% 1 GRAM/10 ML VIAL IV PUSH PRN (11:45)
[2017-03-29] MEDS ORDERED: POTASSIUM CHLOR 20 MEQ PREMIX 100 ML IV PRN ×3 (11:45→14:00)
[2017-03-29] MEDS ORDERED: MAGNESIUM SULFATE INJ 2 GM in SODIUM CHLORIDE 0.9% INJ 100 ML IV PRN ×4 (11:45)
[2017-03-29] MEDS ORDERED: MEPERIDINE HCL 25 MG/ML VIAL IV PUSH PRN (11:45)
[2017-03-29] MEDS ORDERED: PHENYLEPHRINE INJ 40 MG in DEXTROSE 5% IN WATE 500 ML INJ 496 ML IV PRN ×2 (11:45)
[2017-03-29] MEDS ORDERED: Post-op Orders (for Pharmacy) MISC OTHER ONE (11:45)
[2017-03-29] MEDS ORDERED: ACETAMINOPHEN 325 MG TAB PO PRN (11:45)
[2017-03-29] MEDS ORDERED: INSULIN REGULAR (IV INFUSION) 100 UNITS in SODIUM CHLORIDE 0.9% INJ 99 ML IV PRN (11:45)
[2017-03-29] MEDS ORDERED: MORPHINE SULFATE 4 MG/ML INJ IV PUSH PRN (11:45)
[2017-03-29] MEDS ORDERED: ACETAMINOPHEN 650 MG SUPP RECTAL PRN (11:45)
[2017-03-29] MEDS ORDERED: CALCIUM CHLORIDE INJ 1 GM in SODIUM CHLORIDE 0.9% INJ 100 ML IV PRN (11:45)
[2017-03-29] MEDS ORDERED: METOPROLOL TARTRATE 5 MG/5 ML VIAL IV PUSH PRN (11:45)
[2017-03-29] MEDS: SODIUM CHLORIDE 0.9% FLUSH 10 ML FLUSH IV FLUSH SCH ×2 (11:45→21:26)
[2017-03-29] MEDS ORDERED: NITROGLYCERIN-D5W 50 MG/250 ML 250 ML IV PRN (11:45)
[2017-03-29] MEDS ORDERED: DOPamine INJ PREMIX 500 ML IV PRN (11:45)
[2017-03-29] MEDS ORDERED: SODIUM BICARBONATE 8.4% SOLN 50 MEQ/50 ML VIAL IV PUSH PRN ×2 (11:45)
[2017-03-29] MEDS ORDERED: SODIUM CHLORIDE 0.9% FLUSH 10 ML FLUSH IV FLUSH PRN (11:45)
[2017-03-29] MEDS ORDERED: DEXMEDETOMIDINE INJ 200 MCG in SODIUM CHLORIDE 0.9% INJ 50 ML IV PRN (11:45)
[2017-03-29] MEDS ORDERED: CLEVIDIPINE INJ 50 ML IV PRN (11:45)
[2017-03-29] MEDS ORDERED: ONDANSETRON HCL 4 MG/2 ML VIAL IV PUSH PRN (11:45)
[2017-03-29] MEDS ORDERED: PHENYLEPH/NS 1000 MCG/10 ML SYR IV ONE (12:00)
[2017-03-29] MEDS ORDERED: fentaNYL CITRATE 2500 MCG/50 ML VIAL IV ONE (12:00)
[2017-03-29] MEDS ORDERED: LACTATED RINGER'S 1000 ML INJ 3,000 ML IV ONE (12:00)
[2017-03-29] MEDS ORDERED: MILRINONE LACTATE 20 MG/20 ML VIAL IV ONE (12:00)
[2017-03-29] MEDS ORDERED: VECURONIUM BROMIDE 10 MG VIAL IV ONE (12:00)
[2017-03-29] MEDS ORDERED: MAGNESIUM SULFATE 1 GM/2 ML VIAL IV ONE (12:00)
[2017-03-29] MEDS ORDERED: TRANEXAMIC ACID INJ 1,000 MG/10 ML AMP IV ONE (12:00)
[2017-03-29] MEDS ORDERED: HEPARIN SODIUM - SQ 10,000 UNITS/ML VIAL OTHER ONE (12:00)
[2017-03-29] MEDS ORDERED: NORMOSOL R INJ 3,000 ML IV ONE (12:00)
[2017-03-29] MEDS ORDERED: LIDOCAINE HCL 2% 100 MG/5 ML SYRINGE IV PUSH ONE (12:00)
[2017-03-29] MEDS ORDERED: MIDAZOLAM HCL 2 MG/2 ML VIAL IV ONE (12:00)
[2017-03-29] MEDS ORDERED: NS 100 ML (PAB BAG) 100 ML IV ONE (12:00)
[2017-03-29] MEDS ORDERED: PROTAMINE SULFATE 250 MG/25 ML VIAL IV ONE (12:00)
--- NOTE | 2017-03-29 12:48 | RADRPT ---
EXAM DATE/TIME: 03/29/2017 12:28 [facility] COMPARISON: CHEST SINGLE AP, March 28, 2017, 9:24. INDICATIONS : Post CABG. MEDICAL HISTORY : Oral cancer. Peripheral neuopathy. Coronary artery disease. Peripheral vascular disease. Myocardial i nfarction. Fatty liver disease. BPH. SURGICAL HISTORY : CABG. Coronary artery stent. Right femoral endarterectomy. Right shoulder surgery. Left elbow surge ry. Left knee replacement. ENCOUNTER: Subsequent ACUITY: 2 days PAIN SCORE: Non-responsive. LOCATION: chest FINDINGS: Portogram is in good position. Left chest tube in place pneumothorax. Minimal parenchymal changes l eft lung base. Mediastinum is appropriate. CONCLUSION: Support apparatus in good position. Negative for pneumothorax. Chi Lr MD FACR on March 29, 2017 at 12:45 Board Certified Radiologist. This report was verified electronically.
--- NOTE | 2017-03-29 13:03 | HHI.CCPN ---
Subjective Remarks/Hospital Course This is a 58-year-old male with a history of peripheral arterial disease and an inferior STEMI in 2005 who presented for elective right femoral endarterectomy with reconstruction. In the recovery room he was noted to have significant ST depressions with jaw pain. He had positive troponins. He was taken emergently to the [facility] where they found a 90% left main stenosis. They placed interarterial balloon pump and took him to the CVICU postop. I evaluated the patient in the CVICU. he denies any jaw or chest pain now. does endorse 12/29 right groin pain. good distal pulses. no groin hematoma. SUBJ 03/29: Patient seen today after CABG by Dr. Berman-Off pump CABG x3. ( Operative note is pending at this time). Postop currently under sedation but we do not opens eyes moving extremities. IABP in place Objective Vital Signs Date Time Temp Pulse Resp B/P (MAP) Pulse Ox O2 Delivery O2 Flow Rate FiO2 03/29/17 12:10 97 50 03/29/17 06:10 121/51 (110) 03/29/17 04:35 98.2 76 14 03/28/17 20:23 Nasal Cannula 2.00 Intake and Output 03/29/17 03/29/17 03/30/17 08:00 16:00 00:00 Intake Total 1498 ml 4550 ml Output Total 1210 ml 1450 ml Balance 288 ml 3100 ml Result Diagram: 03/29/1711403/29/17114 Objective Remarks GENERAL: Middle-aged male, lying in bed, flat intubated post op HEENT: Normocephalic. Atraumatic. Pupils equal, round, reactive, conjugate. Mucous membranes are moist NECK: Trachea is midline. There is no JVD. CHEST: Equal chest rise. Nasal cannula oxygen. CARDIOVASCULAR: Midline CABG dressing intact Sinus by telemetry. Intra- arterial balloon pump which is 1-1, Good augmentation. ABDOMEN: Soft, nontender, nondistended. No guarding. MUSCULOSKELETAL: Pulses 2+. No peripheral edema. Right groin with wound VAC, clean dry and intact without hematoma. Left groin with balloon pump sheath in place. Distal pulses 2+ and palpable NEUROLOGICAL: Intubated, now sedation from surgery. Starting to move extremities opens eyes. A/P Assessment and Plan Assessment: 66yM POD 1 s/p right femoral endarterectomy with groin reconstruction complicated by periop NSTEMI and 90% left main occlusion. Admit to CVICU with IABP. Now s/p POD [address] surgery eval. Remains very critically ill periop NSTEMI s/p CABG x3 for 90% left main lesion IABP placement - Currently on nitro gtt, insulin, Precedex - Continue ASA, Statin - Post op management per CTS - trend troponins - additional recs per cardiology - Continue IABP Resp failure - Ventilator wean per CV ICU protocol - DuoNeb q 6hr and PRN s/p right femoral endarterectomy with groin reconstruction - frequent neurovascular checks - watch for groin hematoma This patient remains critically ill with one or more organ systems which are or may become a threat to life. I have spent in excess of 30 minutes discontinuously in the care and management of this patient. This time is exclusive of procedures, and includes, but is not limited to, evaluation of the patient, review of the medical record, discussions with family, consultants, nursing staff, or respiratory therapy, and documentation in the medical record. Marisela Phipps MD Mar 29, 2017 13:03
--- NOTE | 2017-03-29 13:05 | MB ---
cc: JUAN PABLO MEDELLIN MD DATE OF CONSULTATION 03/29/2017 DATE OF 1950 REASON FOR ADMISSION A 66-year-old male of Dr. Hi and Dr. Xavier who was admitted for right common femoral endarterectomy by Dr. Demar Tran. Hemodynamically during surgery he was doing okay but then started developing some jaw pain and was noted to have significant ST changes, more than 1 mm depression V3-V6, some subtle changes in I and AVL and inferior leads. The pain occurred after he woke up from his surgery. The patient has a history of coronary artery disease. He has had an inferior ST-segment ID in 2005 and at that time had a Cypher stent to the right coronary artery and then in 2015 he underwent stenting of the proximal LAD with a drug-eluting stent and balloon angioplasty of the diagonal branch. He had a stress test back in May which showed an EF of 47%. He was felt to be an acute [id number] ID so he was emergently taken to the [facility] p[facility] by Dr. Cortez. EF was found to be 50%. The left main showed a high-grade 90% distal stenosis. Apparently there was a stent in the proximal midportion of the LAD and about a 70% stenosis between those two. There was some high-grade disease in the two ramus intermediate branches, a 90% mid and 90% distal right coronary stenosis. An intraaortic balloon pump was placed for critical left main disease. IV heparin and nitro was started. We were consulted to evaluate for surgery, planning for surgery early this morning. PAST MEDICAL HISTORY 1. Significant for coronary artery disease with prior stenting. 2. Renal cysts. 3. Fatty liver disease. 4. Gout. 5. Hyperlipidemia. 6. Hypertension. 7. Prior ID. 8. Neuropathy. 9. 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 10. Peripheral arterial disease. 11. Benign prostatic hypertrophy. OTHER SURGERIES 1. Elbow surgery. 2. Left knee replacement. 3. Right rotator cuff surgery. FAMILY HISTORY Noncontributory. SOCIAL HISTORY Notable for previous. ALLERGIES No known allergies. HOME MEDICATIONS 1. Pletal. 2. Atorvastatin. 3. Fish oil. 4. Cialis. 5. Metoprolol. 6. Amlodipine. 7. Lisinopril. 8. Aspirin. 9. Indocin. 10. Hydrocodone p.r.n. for pain. 11. Gabapentin. 12. Multivitamin. REVIEW OF SYSTEMS Notable for claudication preoperatively. PHYSICAL EXAMINATION VITAL SIGNS: As charted. GENERAL: The patient is awake, alert. HEENT: Head is normocephalic, atraumatic. Pupils equal and reactive. Oral mucosa pink, moist. NECK: Supple. No JVD. HEART SOUNDS: S1-S2. Regular rate and rhythm. No rubs, murmurs or gallops. LUNGS: Clear to auscultation. No wheezes, rales or rhonchi. ABDOMEN: Soft, nontender. EXTREMITIES: Postsurgical left groin, has a distal pulse. LABORATORY DATA Lab work shows hemoglobin of 12, hematocrit of 36, white cell count of 7.8, platelet count 183. sodium 139, potassium 4.4, BUN of 15, creatinine 1.05. Troponin was 0.16. INR 1.1. Urinalysis did show a large leukocyte esterase. Micro is pending. MRSA is not detected. CHEST X-RAY No acute disease. Ultrasound of lower extremities showed no DVT. IMPRESSION 1. Perioperative [id number] ID with 90% left main disease, also RCA, LAD disease. The patient had intraaortic balloon pump placed. The patient was placed on heparin and nitro. The patient is to undergo cardiovascular surgery this morning. 2. Status post right femoral endarterectomy for groin reconstruction. Monitor for any groin hematoma. Frequent neuro checks. 3. Other history includes hyperlipidemia which he will need to be continued on a statin. 4. Hypertension. 5. History of cancer of the soft palate post radiation. 6. Peripheral arterial disease. 7. Benign prostatic hypertrophy. PLAN We will continue to follow. Further plan as per Dr. Juan Pablo Medellin. Dictated by: QIANA Serrano Juan Pablo JUNE/MEGAN /10:57 AM /1:10 PM
[2017-03-29] MEDS: NITROGLYCERIN-D5W 50 MG/250 ML 250 ML IV PRN (13:41)
[2017-03-29] MEDS ORDERED: hydrALAZINE HCL 20 MG/ML VIAL IV PUSH PRN (14:00)
[2017-03-29] MEDS ORDERED: RESP: ALBUTEROL 2.5 MG/IPRATROPIUM 0.5 MG NEB (PRN) NEB (14:00)
[2017-03-29] MEDS ORDERED: DEXTROSE 50% IN WATER 50 ML VIAL(D50) IV PUSH PRN (14:00)
[2017-03-29] MEDS ORDERED: ALBUMIN 5% INJ 250 ML IV PRN (14:00)
[2017-03-29] MEDS ORDERED: POTASSIUM CHLORIDE 20 MEQ CONTROLLED RELEASE TAB PO PRN ×2 (14:00)
[2017-03-29] MEDS ORDERED: RESP: RACEPINEPHRINE 2.25% 0.5 ML NEB NEB PRN (14:00)
[2017-03-29] MEDS: ACETAMINOPHEN 1000 MG/100 ML 100 ML IV SCH ×2 (14:14→21:25)
[2017-03-29] MEDS: HYDROmorphone HCL 2 MG TAB PO PRN ×2 (16:03→21:27)
[2017-03-29] MEDS: RESP: ALBUTEROL 2.5 MG/IPRATROPIUM 0.5 MG NEB (SCH) NEB ×2 (16:59→21:22)
[2017-03-29] MEDS: KETOROLAC TROMETHAMINE 30 MG/ML (IVP) VIAL IV PUSH PRN ×2 (17:11→23:30)
--- NOTE | 2017-03-29 17:16 | PD.OP ---
cc: Cuco Tran MD; Micheal Xavier MD; Dian Berman MD; Renzo Cortez MD Operative Report Date of Surgery: Mar 29, 2017 Preoperative Diagnosis: Postoperative Diagnosis: Procedure: 1. Urgent Clampless Off-pump Coronary Artery Bypass Grafting x 3 with Left Internal Mammary Artery (NAZARIO) to the Left Anterior Descending (LAD), reverse saphenous vein graft to the Obtuse Marginal 1 (OM1), reverse saphenous vein graft to the Ramus Marginalis (RM) 2. Left Leg Endoscopic Vein [place] 3. Ultrasound-guided Dissection of the LAD 4. Intraoperative Vein Mapping Surgeon: Dian Berman Administrative Receptionist(s): Aleksandr Bello Operation and Findings: PREPROCEDURE DIAGNOSES 1. Severe Multi-Vessel Coronary Artery Disease. 2. Left Main Stenosis 3. Acute Myocardial Infarction 4. Peripheral Vascular Occlusive Disease 5. Calcified Ascending Aorta 6. Intramyocardial Coronary Arteries 7. IABP Circulatory Support POSTPROCEDURE DIAGNOSES Same SURGICAL PROCEDURE 1. Urgent Clampless Off-pump Coronary Artery Bypass Grafting x 3 with Left Internal Mammary Artery (NAZARIO) to the Left Anterior Descending (LAD), reverse saphenous vein graft to the Obtuse Marginal 1 (OM1), reverse saphenous vein graft to the Ramus Marginalis (RM) 2. Left Leg Endoscopic Vein [place] 3. Ultrasound-guided Dissection of the LAD 4. Intraoperative Vein Mapping SURGEON Dian Berman MD PRODUCT MARKETING ANALYST Moise Bello SUPPORT TEAM MEMBER ANESTHESIA General endotracheal BREAD WRAPPER ANIL Emmanuel MD PREPARATION ChloraPrep. COUNTS Needle, sponge, and instrument counts were correct. DRAINS Two 32-Frisian mediastinal tubes. COMPLICATIONS None. INDICATIONS FOR PROCEDURE The patient is a 66-year-old with perioperative AMI and chest pain following right groin reconstruction surgery, who was found to have multi-vessel coronary artery disease with associated left main stenosis. He is being brought to the operating room for surgical revascularization therapy. PROCEDURE Patient was brought to the operating room and placed supine on the OR table. Following the induction of adequate general endotracheal anesthesia and placement of appropriate monitoring devices, intraoperative vein mapping was performed which revealed marginal-caliber conduit in both legs. The patient was then prepped and draped in standard sterile fashion. Next, 2500 units of intravenous heparin was given. The left greater saphenous vein was harvested endoscopically from the calf. This appeared to be a small and thickened but useable-caliber conduit. Simultaneously, a median sternotomy was performed and the left internal mammary artery dissected free off the posterior sternal table. The patient was systemically heparinized and anticoagulation monitored by serial ACT measurements. The internal mammary artery had good pulsatile flow in it and was a decent-caliber conduit. The pericardium was then divided in the midline, the cradle created and targets analyzed. At this point, all anastomoses were performed in a beating-heart fashion using the [employer] stabilizing system. The LAD was deeply intramyocardial. The ultrasound probe was used to identify and dissect the LAD in its mid course, The left internal mammary artery was anastomosed to the mid LAD (1.75 mm) in an end-to-side fashion using 7-0 Prolene. The next segment was anastomosed to the OM1 (1.75 mm ) in an end-to-side fashion using a running 7-0 Prolene. The final anastomosis was performed to the ramus in an end-to-side fashion using a running 7-0 Prolene. The [proximal aorta was next examined and noted to be diffusely calcific. Two soft spots were identified and the proximal anastomoses performed in ta clampless fashion using the Heartstring III device. These were constructed to the ascending aorta in a running manner using 6-0 Prolene. All anastomotic sites were inspected and appeared to be hemostatic and patent. Protamine solution was given. Strict hemostasis was assured. The closure was undertaken. 2 chest tubes were placed. The pericardium was reapproximated in the midline. The sternum was approximated using sternal wires. The muscular and fascial layer were then closed in 3 layers. The endoscopic vein harvest site was closed in 2 layers. The patient tolerated the procedure well and was transferred to CVICU in stable condition. Dian Berman MD Mar 29, 2017 17:16
[2017-03-29] MEDS: ATORVASTATIN 40 MG TAB PO SCH (21:26)
[2017-03-29] MEDS: ceFAZolin 2 GM PREMIX 50 ML IV SCH (21:26)
[2017-03-29] MEDS: AMIODARONE 200 MG TAB PO SCH (21:27)
[2017-03-30] VITALS (15 sets, daily range): BP systolic 112–147; BP diastolic 41–67; PULSE 79–120; RESP 16–20; TEMP 98.3–98.9; O2SAT 95–99
[2017-03-30] MEDS: ACETAMINOPHEN 1000 MG/100 ML 100 ML IV SCH ×2 (02:00→07:22)
[2017-03-30] MEDS: HYDROmorphone HCL 2 MG TAB PO PRN (03:44)
[2017-03-30] MEDS: ceFAZolin 2 GM PREMIX 50 ML IV SCH ×3 (03:44→21:47)
[2017-03-30] MEDS: RESP: ALBUTEROL 2.5 MG/IPRATROPIUM 0.5 MG NEB (SCH) NEB ×2 (03:48→21:07)
[2017-03-30 04:44] LABS: HEMATOCRIT 25.4 % (39.0-51.0); MEAN CELL VOLUME 96.5 FL (80.0-100.0); MEAN CORPUSCULAR HEMOGLOBIN 33.6 PG (27.0-34.0); MEAN CORPUSCULAR HGB CONC 34.8 % (32.0-36.0); PLATELET COUNT 129 TH/MM3 (150-450); RED BLOOD COUNT 2.63 MIL/MM3 (4.50-5.90); REVIEW FLAG FINAL; WHITE BLOOD COUNT 8.9 TH/MM3 (4.0-11.0)
[2017-03-30 05:04] LABS: BICARBONATE 24.7 MEQ/L (21.0-32.0); MAGNESIUM 2.1 MG/DL (1.5-2.5); POTASSIUM 4.1 MEQ/L (3.5-5.1)
[2017-03-30] MEDS: PANTOPRAZOLE SOD 40 MG DELAYED RELEASE TAB PO SCH (06:00)
--- NOTE | 2017-03-30 06:15 | RADRPT ---
EXAM DATE/TIME: 03/30/2017 04:36 [facility] COMPARISON: CHEST SINGLE AP, March 29, 2017, 12:28. INDICATIONS : Shortness of breath, possible pulmonary disease. MEDICAL HISTORY : Carcinoma, oral cavity. Myocardial infarction. PVD BPH SURGICAL HISTORY : CABG. Coronary artery stent. Total knee replacement, left. ENCOUNTER: Subsequent ACUITY: 3 days PAIN SCORE: Non-responsive. LOCATION: Bilateral chest FINDINGS: The cardiac silhouette is normal in transverse diameter. Median sternotomy wires are present. Support lines and tubes are in satisfactory position. There is prominence of the central pulmonary vasculatu re with indistinct vascular margins compatible with vascular congestion but no evidence of overt fail ure. CONCLUSION: 1. Cardiomegaly and findings of vascular congestion without overt failure. There has been no signific ant change when compared to the prior exam.88 Jose Rosas MD on March 30, 2017 at 6:12 Board Certified Radiologist. This report was verified electronically.
--- NOTE | 2017-03-30 07:14 | HHI.CCPN ---
Subjective Remarks/Hospital Course This is a 58-year-old male with a history of peripheral arterial disease and an inferior STEMI in 2005 who presented for elective right femoral endarterectomy with reconstruction. In the recovery room he was noted to have significant ST depressions with jaw pain. He had positive troponins. He was taken emergently to the [facility] where they found a 90% left main stenosis. They placed interarterial balloon pump and took him to the CVICU postop. I evaluated the patient in the CVICU. he denies any jaw or chest pain now. does endorse 12/29 right groin pain. good distal pulses. no groin hematoma. SUBJ 03/29: Patient seen today after CABG by Dr. Berman-Off pump CABG x3. ( Operative note is pending at this time). Postop currently under sedation but we do not opens eyes moving extremities. IABP in place 03/30: Status post CABG 3 yesterday (Left Internal Mammary Artery (NAZARIO) to the Left Anterior Descending (LAD), reverse saphenous vein graft to the Obtuse Marginal 1 (OM1), reverse saphenous vein graft to the Ramus Marginalis (RM). Hemodynamically stable overnight, tachycardic with frequent PVCs. IABP 1:2. Plan to DC balloon pump today. Recommend starting beta blockers Objective Vital Signs Date Time Temp Pulse Resp B/P (MAP) Pulse Ox O2 Delivery O2 Flow Rate FiO2 03/30/17 06:00 03/30/17 04:00 97 Nasal Cannula 3.00 03/30/17 04:00 98 03/30/17 04:00 98.4 20 03/29/17 13:03 40 Intake and Output 03/30/17 03/30/17 03/31/17 08:00 16:00 00:00 Intake Total 1347 ml Output Total 880 ml Balance 467 ml Result Diagram: 03/30/1740903/30/17409 Objective Remarks GENERAL: Middle-aged male, lying in bed, c/o pain at surgical site HEENT: Normocephalic. Atraumatic. Pupils equal, round, reactive, conjugate. Mucous membranes are moist NECK: Trachea is midline. There is no JVD. CHEST: Equal chest rise. Nasal cannula oxygen. CARDIOVASCULAR: Midline CABG dressing intact Sinus by telemetry. Intra- arterial balloon pump which is 1:2, Chest tube with 280 ml output in 24 hours ABDOMEN: Soft, nontender, nondistended. No guarding. MUSCULOSKELETAL: Pulses 2+. No peripheral edema. Right groin with wound VAC, clean dry and intact without hematoma. Left groin with balloon pump sheath in place. Distal pulses 2+ and palpable NEUROLOGICAL: Alert awake oriented. No focal deficits A/P Assessment and Plan Assessment: 66yM POD 1 s/p right femoral endarterectomy with groin reconstruction complicated by periop NSTEMI and 90% left main occlusion. Now s/ p POD 1 from CABG x3. Mele to DC IABP today, start beta shilpa periop NSTEMI s/p CABG x3 for 90% left main lesion IABP placement - Continue ASA, Statin - Post op management per CTS - Wean to DC IABP, start beta shilpa today - additional recs per cardiology Resp failure-resolved - Extubated yesterday postop - DuoNeb q 6hr and PRN s/p right femoral endarterectomy with groin reconstruction - frequent neurovascular checks - watch for groin hematoma Level 2 Will follow patient while in ICU. Marisela Phipps MD Mar 30, 2017 07:14
[2017-03-30] MEDS: KETOROLAC TROMETHAMINE 30 MG/ML (IVP) VIAL IV PUSH PRN (07:22)
[2017-03-30] MEDS: CLOPIDOGREL 75 MG TAB PO SCH (08:53)
[2017-03-30] MEDS: AMIODARONE 200 MG TAB PO SCH ×2 (08:54→21:46)
[2017-03-30] MEDS: INDOMETHACIN 50 MG CAP PO SCH (08:54)
[2017-03-30] MEDS: MUPIROCIN 2% OINT 1 APPLIC/GM SYR EACH NARE SCH ×2 (08:55→21:48)
[2017-03-30] MEDS: ASPIRIN 81 MG CHEW TAB PO SCH ×2 (08:56→10:36)
[2017-03-30] MEDS ORDERED: MULTIVITAMIN INJ 10 ML, THIAMINE INJ 500 MG, FOLIC ACID INJ 1 MG in SODIUM CHLORID 0.9%... IV SCH (09:00)
[2017-03-30] MEDS: oxyCODONE/ACETAMINOPHEN 5 MG/325 MG TAB PO PRN ×3 (09:25→19:30)
[2017-03-30] MEDS ORDERED: SOD PHOSPHATE/SOD BIPHOSPHATE (ADULT) ENEMA 133ML RECTAL PRN (10:00)
[2017-03-30] MEDS ORDERED: DEXTROSE 50% IN WATER 50 ML VIAL(D50) IV PUSH PRN (10:00)
[2017-03-30] MEDS: INSULIN ASPART SUPPLEMENTAL SCALE SQ SCH ×4 (10:00→22:00)
[2017-03-30] MEDS ORDERED: BISACODYL 10 MG SUPP RECTAL PRN (10:00)
[2017-03-30] MEDS ORDERED: GLUCAGON 1 MG/ML VIAL OTHER PRN (10:00)
[2017-03-30] MEDS: MULTIVITAMIN TAB PO SCH (10:32)
[2017-03-30] MEDS: SODIUM CHLORIDE 0.9% FLUSH 10 ML FLUSH IV FLUSH SCH ×2 (10:35→21:48)
[2017-03-30] MEDS ORDERED: MAGNESIUM SULFATE 1 GM PREMIX 100 ML IV ONE (11:00)
[2017-03-30] MEDS ORDERED: FUROSEMIDE 40 MG/4 ML VIAL IV PUSH ONE (11:00)
[2017-03-30] MEDS ORDERED: POTASSIUM CHLORIDE 10 MEQ CONTROLLED RELEASE TAB PO ONE (11:00)
[2017-03-30] MEDS: GABAPENTIN 300 MG CAP PO SCH ×2 (12:02→17:25)
[2017-03-30] MEDS: DOCUSATE SODIUM 100 MG CAP PO SCH ×2 (12:03→21:45)
[2017-03-30] MEDS: METOPROLOL TARTRATE 25 MG TAB PO SCH ×2 (12:03→21:45)
[2017-03-30] MEDS ORDERED: hydrALAZINE HCL 20 MG/ML VIAL IV PRN (12:45)
[2017-03-30] MEDS: MORPHINE SULFATE 2 MG/ML INJ IV PRN ×3 (12:46→22:15)
--- NOTE | 2017-03-30 14:00 | EKG ---
Date Performed: 03/30/2017 Time Performed: 04:52:18 PTAGE: 66 years EKG: Sinus tachycardia with PVC(s) Ant/septal and lateral ST-T changes may be due to myocardial ischemia Abnormal ECG Compared to prior electrocardiogram, PVCs are now present and ST depression may be less prominent. PREVIOUS TRACING : 03/28/2017 16.14 DOCTOR: Micheal Xavier Interpretating Date/Time 03/30/2017 13:59:01
--- NOTE | 2017-03-30 14:42 | PD.CAR.PN ---
CVT Progress Note Subjective/Hospital Course: 66-year-old male, known to have coronary artery disease. He had an inferior STEMI in February 2006 and had a 3.0 x 28 mm Cypher stent to the right coronary artery then in March 2016 underwent stenting of the proximal LAD with a 3.0 x 18 mm drug-eluting stent, along with a 2.5 x 18 mm drug-eluting stent of the mid-LAD and balloon angioplasty of the diagonal branch. He underwent right common femoral endarterectomy 03/28 , after waking up from surgery developed jaw pain and noted to have significant ST changes on the monitor postop 12-lead EKG is very abnormal with more than [address] depression V3-V6 but also has some subtle changes in 1 and AVL and the inferior leads. pt went directly to [facility] labou[facility], underwent cardiac cath by Dr Cortez and found to have . Elevated left ventricular end-diastolic pressure due to ischemia, Preserved left ventricular systolic function EF 50%, Critical left main and multivessel coronary artery disease, IABP was placed and started on Heparin and NTG / he is undergoing Coronary artery bypass grafting today PMH: Includes past alcohol abuse, Coronary artery disease/ GA/ stents , Renal cyst, Fatty liver disease, Gout, Hyperlipidemia, Hypertension, Neuropathy, Cancer of the soft palate, treated with radiation therapy, Peripheral arterial disease. Benign prostatic hypertrophy, Right lower extremity claudication, peripheral arterial occlusive disease. surgery: 03/28 Right common femoral endarterectomy, Right lower extremity angiogram, Right SFA orbital atherectomy and angioplasty by Dr Tran surgery 03/29 : 1. Urgent Clampless Off-pump Coronary Artery Bypass Grafting x 3 with Left Internal Mammary Artery (NAZARIO) to the Left Anterior Descending (LAD) , reverse saphenous vein graft to the Obtuse Marginal 1 (OM1), reverse saphenous vein graft to the Ramus Marginalis (RM), Left Leg Endoscopic Vein [place], Ultrasound-guided Dissection of the LAD extubated after surgery crystalloid 4000cc, EBL 800cc, cell saver 550cc IABP 1.3 since 7am, no pressors , PLT stable Left groin IABP removed this am with balloon intact , hemostasis obtained after 20min, no hematoma or oozing at site, + Doppler pulse throughout groin hold pressure dressing applied pain meds adjusted for control, BP meds adjusted for HTN bedrest x 6 hours, then OOB to chair keep in CVICU today Objective: GENERAL: SKIN: Warm and dry. prevena dressing to chest and right groin , pressure dressing to left groin prior IABP education site manager: Normocephalic. EYES: No scleral icterus. No injection or drainage. NECK: Supple, trachea midline. No JVD or lymphadenopathy. CARDIOVASCULAR: Regular rate and rhythm without murmurs, gallops, or rubs. RESPIRATORY: diminished in bases Breath sounds equal bilaterally. No accessory muscle use. chest tube to wall suction, no air leak drained 280cc/ 12 hrs GASTROINTESTINAL: Abdomen soft, non-tender, nondistended. MUSCULOSKELETAL: No cyanosis, or edema. BACK: Nontender without obvious deformity. No CVA tenderness. Vital Signs Date Time Temp Pulse Resp B/P (MAP) Pulse Ox O2 Delivery O2 Flow Rate FiO2 03/30/17 13:01 16 03/30/17 11:03 98 Nasal Cannula 3.00 03/30/17 11:03 98.9 101 16 147/62 (90) 96 03/30/17 11:03 101 03/30/17 10:37 18 03/30/17 09:08 98 Nasal Cannula 3.00 03/30/17 08:57 16 03/30/17 08:00 120 130/50 (76) Automatic Cuff 03/30/17 07:00 118/46 (87) 03/30/17 07:00 112 03/30/17 07:00 97 Nasal Cannula 3.00 03/30/17 07:00 98.4 112 18 116/63 (80) 97 118/46 (70) 03/30/17 06:00 03/30/17 05:00 03/30/17 04:00 97 Nasal Cannula 3.00 03/30/17 04:00 98 03/30/17 04:00 98.4 98 20 97 147/58 (87) 03/30/17 04:00 121/59 (92) 03/30/17 03:51 98 Nasal Cannula 3.00 03/30/17 03:00 03/30/17 02:00 03/30/17 01:00 03/30/17 00:00 98.4 79 18 99 119/41 (67) 03/30/17 00:00 99 Nasal Cannula 4.00 03/30/17 00:00 94/44 (75) 03/30/17 00:00 79 03/29/17 23:00 03/29/17 22:00 03/29/17 20:00 99 Nasal Cannula 4.00 03/29/17 20:00 98.2 65 20 115/66 (82) 99 97/35 (55) 03/29/17 20:00 65 03/29/17 20:00 68/35 (64) 03/29/17 19:00 99 Nasal Cannula 5.00 03/29/17 18:00 92/48 (90) 03/29/17 17:00 101/57 (98) 03/29/17 16:49 16 03/29/17 16:45 97 Nasal Cannula 4.00 03/29/17 16:16 64 03/29/17 16:00 80/43 (74) 03/29/17 15:55 16 03/29/17 15:41 98.0 87 16 94/53 (67) 95 03/29/17 15:00 98.0 87 10 97 101/32 (55) 03/29/17 15:00 98.0 87 18 94/53 (67) 95 03/29/17 15:00 94/53 (91) Labs: Laboratory Tests Test 03/30/17 04:10 White Blood Count 8.9 TH/MM3 (4.0-11.0) Red Blood Count 2.63 MIL/MM3 (4.50-5.90) Hemoglobin 8.8 GM/DL (13.0-17.0) Hematocrit 25.4 % (39.0-51.0) Mean Corpuscular Volume 96.5 FL (80.0-100.0) Mean Corpuscular Hemoglobin 33.6 PG (27.0-34.0) Mean Corpuscular Hemoglobin Concent 34.8 % (32.0-36.0) Red Cell Distribution Width 14.0 % (11.6-17.2) Platelet Count 129 TH/MM3 (150-450) Mean Platelet Volume 8.5 FL (7.0-11.0) Blood Urea Nitrogen 15 MG/DL (7-18) Creatinine 0.82 MG/DL (0.60-1.30) Random Glucose 106 MG/DL (74-106) Calcium Level 8.2 MG/DL (8.5-10.1) Magnesium Level 2.1 MG/DL (1.5-2.5) Sodium Level 140 MEQ/L (136-145) Potassium Level 4.1 MEQ/L (3.5-5.1) Chloride Level 106 MEQ/L (98-107) Carbon Dioxide Level 24.7 MEQ/L (21.0-32.0) Anion Gap 9 MEQ/L (5-15) Estimat Glomerular Filtration Rate 93 ML/MIN (>89) Phosphorus Level 2.2 MG/DL (2.5-4.9) Result Diagram: 03/30/1740903/30/17409 EKG: NSR with PAC/ PVC (1) STEMI (ST elevation myocardial infarction) Plan: IABP dc on ASA statin BB (2) Hyperlipemia (3) Coronary artery disease Plan: (4) S/P CABG x 3 Plan: ASA, statin , BB gentle diuresis , + 6 kg pulm toileting nebs, ezpap acapella (5) PAD (peripheral artery disease) Plan: on plavix (6) s/p Right common femoral endarterectomy Plan: prevena dressing in place / + distal doppler pulses (7) History of BPH (8) Chronic back pain Plan: on indocin, and resume gabapentin Leonora Vasquez Mar 30, 2017 14:42
[2017-03-30] MEDS: POTASSIUM PHOSPHATE MONOBASIC 500 MG TAB PO SCH ×2 (15:29→22:13)
--- NOTE | 2017-03-30 15:42 | PD.VS.PN ---
Subjective POD #: 2 Procedure(s): R groin revision and SFA orbital atherectomy Subjective/Hospital Course post op [place] necessitating CABG Looks great now. No c/o groin pain and foot feels great Objective Vitals/I&O Date Time Temp Pulse Resp B/P (MAP) Pulse Ox O2 Delivery O2 Flow Rate FiO2 03/30/17 15:31 16 03/30/17 11:03 98 Nasal Cannula 3.00 03/30/17 11:03 98.9 101 16 147/62 (90) 96 03/30/17 11:03 101 03/30/17 10:37 18 03/30/17 09:08 98 Nasal Cannula 3.00 03/30/17 08:57 16 03/30/17 08:00 120 130/50 (76) Automatic Cuff 03/30/17 07:00 118/46 (87) 03/30/17 07:00 112 03/30/17 07:00 97 Nasal Cannula 3.00 03/30/17 07:00 98.4 112 18 116/63 (80) 97 118/46 (70) 03/30/17 06:00 03/30/17 05:00 03/30/17 04:00 97 Nasal Cannula 3.00 03/30/17 04:00 98 03/30/17 04:00 98.4 98 20 97 147/58 (87) 03/30/17 04:00 121/59 (92) 03/30/17 03:51 98 Nasal Cannula 3.00 03/30/17 03:00 03/30/17 02:00 03/30/17 01:00 03/30/17 00:00 98.4 79 18 99 119/41 (67) 03/30/17 00:00 99 Nasal Cannula 4.00 03/30/17 00:00 94/44 (75) 03/30/17 00:00 79 03/29/17 23:00 03/29/17 22:00 03/29/17 20:00 99 Nasal Cannula 4.00 03/29/17 20:00 98.2 65 20 115/66 (82) 99 97/35 (55) 03/29/17 20:00 65 03/29/17 20:00 68/35 (64) 03/29/17 19:00 99 Nasal Cannula 5.00 03/29/17 18:00 92/48 (90) 03/29/17 17:00 101/57 (98) 03/29/17 16:49 16 03/29/17 16:45 97 Nasal Cannula 4.00 03/29/17 16:16 64 03/29/17 16:00 80/43 (74) 03/29/17 15:55 16 03/29/17 15:41 98.0 87 16 94/53 (67) 95 03/30/17 03/30/17 03/30/17 07:00 15:00 23:00 Intake Total 1347 ml Output Total 880 ml Balance 467 ml Exam: palpable R pedal pulses R groin VAC in place Laboratory Laboratory Tests Test 03/30/17 04:10 White Blood Count 8.9 Red Blood Count 2.63 Hemoglobin 8.8 Hematocrit 25.4 Mean Corpuscular Volume 96.5 Mean Corpuscular Hemoglobin 33.6 Mean Corpuscular Hemoglobin Concent 34.8 Red Cell Distribution Width 14.0 Platelet Count 129 Mean Platelet Volume 8.5 Blood Urea Nitrogen 15 Creatinine 0.82 Random Glucose 106 Calcium Level 8.2 Magnesium Level 2.1 Sodium Level 140 Potassium Level 4.1 Chloride Level 106 Carbon Dioxide Level 24.7 Anion Gap 9 Estimat Glomerular Filtration Rate 93 Phosphorus Level 2.2 Date/Time Source Procedure Growth Status 03/28/17 21:05 Urine Random Urine Urine Culture - Preliminary NO GROWTH IN 24 HOURS. Resulted Assessment and Plan Plan R groin reconstruction and angiogram/endovascular intervention post op CABG and looks great management per [facility] Discharge Planning per [facility] Cuco Tran MD Mar 30, 2017 15:42
[2017-03-30] MEDS: SENNOSIDES 8.6 MG TAB PO SCH (21:45)
[2017-03-30] MEDS: ATORVASTATIN 40 MG TAB PO SCH (21:45)
[2017-03-31] VITALS (27 sets, daily range): BP systolic 108–134; BP diastolic 57–75; PULSE 68–88; RESP 16–18; TEMP 97.8–98.5; O2SAT 92–99
[2017-03-31] MEDS: INSULIN ASPART SUPPLEMENTAL SCALE SQ SCH ×5 (02:00→21:00)
[2017-03-31] MEDS: oxyCODONE/ACETAMINOPHEN 5 MG/325 MG TAB PO PRN ×4 (03:00→17:40)
[2017-03-31] MEDS: ceFAZolin 2 GM PREMIX 50 ML IV SCH (04:23)
[2017-03-31 05:34] LABS: AUTOMATED NEUTROPHIL # 6.2 TH/MM3 (1.8-7.7); BASOPHIL % 0.1 % (0.0-2.0); EOSINOPHIL # 0.1 TH/MM3 (0-0.4); EOSINOPHIL % 1.3 % (0.0-4.0); HEMATOCRIT 23.5 % (39.0-51.0); HEMO FLAGS DIFF FINAL; LYMPH % 6.5 % (9.0-44.0); LYMPHOCYTE # 0.5 TH/MM3 (1.0-4.8); MEAN CELL VOLUME 96.9 FL (80.0-100.0); MEAN CORPUSCULAR HEMOGLOBIN 32.9 PG (27.0-34.0); MEAN CORPUSCULAR HGB CONC 33.9 % (32.0-36.0); MONO % 8.3 % (0.0-8.0); NEUT % 83.8 % (16.0-70.0); PLATELET COUNT 109 TH/MM3 (150-450); RED BLOOD COUNT 2.43 MIL/MM3 (4.50-5.90); WHITE BLOOD COUNT 7.4 TH/MM3 (4.0-11.0)
[2017-03-31 06:02] LABS: BICARBONATE 29.4 MEQ/L (21.0-32.0); MAGNESIUM 2.2 MG/DL (1.5-2.5); POTASSIUM 4.4 MEQ/L (3.5-5.1)
[2017-03-31] MEDS: PANTOPRAZOLE SOD 40 MG DELAYED RELEASE TAB PO SCH (06:30)
[2017-03-31] MEDS: MORPHINE SULFATE 2 MG/ML INJ IV PRN (06:33)
[2017-03-31] MEDS: RESP: ALBUTEROL 2.5 MG/IPRATROPIUM 0.5 MG NEB (SCH) NEB ×3 (07:27→20:20)
[2017-03-31] MEDS: INDOMETHACIN 50 MG CAP PO SCH (09:00)
[2017-03-31] MEDS: SODIUM CHLORIDE 0.9% FLUSH 10 ML FLUSH IV FLUSH SCH ×2 (09:00→20:59)
[2017-03-31] MEDS: POLYETHYLENE GLYCOL 17 GM PKG PO SCH (09:17)
[2017-03-31] MEDS: METOPROLOL TARTRATE 25 MG TAB PO SCH ×2 (09:18→20:59)
[2017-03-31] MEDS: POTASSIUM PHOSPHATE MONOBASIC 500 MG TAB PO SCH ×2 (09:18→20:59)
[2017-03-31] MEDS: CLOPIDOGREL 75 MG TAB PO SCH (09:18)
[2017-03-31] MEDS: MULTIVITAMINS/MINERALS THERAPEUTIC TAB PO SCH (09:18)
[2017-03-31] MEDS: GABAPENTIN 300 MG CAP PO SCH ×3 (09:18→17:33)
[2017-03-31] MEDS: DOCUSATE SODIUM 100 MG CAP PO SCH ×2 (09:18→21:00)
[2017-03-31] MEDS: AMIODARONE 200 MG TAB PO SCH ×2 (09:19→20:59)
[2017-03-31] MEDS: MAGNESIUM HYDROXIDE SUSP 30 ML CUP PO SCH (09:19)
[2017-03-31] MEDS: ASPIRIN 81 MG CHEW TAB PO SCH (09:19)
[2017-03-31] MEDS: MUPIROCIN 2% OINT 1 APPLIC/GM SYR EACH NARE SCH ×2 (09:19→21:00)
[2017-03-31] MEDS: FERROUS SULFATE 325 MG (65 MG ELEMENTAL IRON) TAB PO SCH ×2 (12:50→17:33)
--- NOTE | 2017-03-31 17:03 | PD.CAR.PN ---
CVT Progress Note Subjective/Hospital Course: 66-year-old male, known to have coronary artery disease. He had an inferior STEMI in February 2006 and had a 3.0 x 28 mm Cypher stent to the right coronary artery then in March 2016 underwent stenting of the proximal LAD with a 3.0 x 18 mm drug-eluting stent, along with a 2.5 x 18 mm drug-eluting stent of the mid-LAD and balloon angioplasty of the diagonal branch. He underwent right common femoral endarterectomy 03/28 , after waking up from surgery developed jaw pain and noted to have significant ST changes on the monitor postop 12-lead EKG is very abnormal with more than [address] depression V3-V6 but also has some subtle changes in 1 and AVL and the inferior leads. pt went directly to aquatic life laborer, underwent cardiac cath by Dr Cortez and found to have . Elevated left ventricular end-diastolic pressure due to ischemia, Preserved left ventricular systolic function EF 50%, Critical left main and multivessel coronary artery disease, IABP was placed and started on Heparin and NTG / he is undergoing Coronary artery bypass grafting today PMH: Includes past alcohol abuse, Coronary artery disease/ [place]/ stents , Renal cyst, Fatty liver disease, Gout, Hyperlipidemia, Hypertension, Neuropathy, Cancer of the soft palate, treated with radiation therapy, Peripheral arterial disease. Benign prostatic hypertrophy, Right lower extremity claudication, peripheral arterial occlusive disease. surgery: 03/28 Right common femoral endarterectomy, Right lower extremity angiogram, Right SFA orbital atherectomy and angioplasty by Dr Tran surgery 03/29 : 1. Urgent Clampless Off-pump Coronary Artery Bypass Grafting x 3 with Left Internal Mammary Artery (NAZARIO) to the Left Anterior Descending (LAD) , reverse saphenous vein graft to the Obtuse Marginal 1 (OM1), reverse saphenous vein graft to the Ramus Marginalis (RM), Left Leg Endoscopic Vein [place], Ultrasound-guided Dissection of the LAD extubated after surgery crystalloid 4000cc, EBL 800cc, cell saver 550cc IABP 1.3 since 7am, no pressors , PLT stable Left groin IABP removed this am with balloon intact , hemostasis obtained after 20min, no hematoma or oozing at site, + Doppler pulse throughout groin hold pressure dressing applied pain meds adjusted for control, BP meds adjusted for HTN bedrest x 6 hours, then OOB to chair keep in CVICU today 03/31 doing well, pain controlled chest tubes removed without difficulty left IABP site, with mild ecchymosis , no hematoma remains in NSR Objective: GENERAL: SKIN: Warm and dry. prevena dressing to sternum and right groin , HEAD: Normocephalic. EYES: No scleral icterus. No injection or drainage. NECK: Supple, trachea midline. No JVD or lymphadenopathy. CARDIOVASCULAR: Regular rate and rhythm without murmurs, gallops, or rubs. + palpable right distal pedal pulse, left foot doppler only RESPIRATORY: Breath sounds equal bilaterally. No accessory muscle use. GASTROINTESTINAL: Abdomen soft, non-tender, nondistended. MUSCULOSKELETAL: No cyanosis, or edema. BACK: Nontender without obvious deformity. No CVA tenderness. Vital Signs Date Time Temp Pulse Resp B/P (MAP) Pulse Ox O2 Delivery O2 Flow Rate FiO2 03/31/17 15:00 98.0 73 18 128/64 (85) 92 03/31/17 15:00 74 03/31/17 15:00 92 Room Air 03/31/17 14:00 77 03/31/17 13:00 71 03/31/17 12:00 73 03/31/17 11:00 99 Room Air 03/31/17 11:00 72 03/31/17 11:00 97.8 74 18 108/75 (86) 99 03/31/17 10:00 84 03/31/17 09:00 88 03/31/17 08:10 18 03/31/17 08:00 82 03/31/17 07:28 97 21 03/31/17 07:00 91 Room Air 03/31/17 07:00 82 03/31/17 07:00 98.5 86 18 108/75 (86) 03/31/17 06:00 79 03/31/17 05:02 79 03/31/17 04:08 74 03/31/17 03:26 94 Nasal Cannula 3.00 03/31/17 03:26 97.8 80 16 134/63 (86) 94 03/31/17 03:07 81 03/31/17 02:22 73 03/31/17 01:00 74 03/31/17 00:00 71 03/30/17 23:00 81 03/30/17 23:00 95 Nasal Cannula 3.00 03/30/17 23:00 98.8 91 16 123/56 (78) 95 03/30/17 22:00 86 03/30/17 21:08 96 Nasal Cannula 3.00 03/30/17 21:00 94 03/30/17 20:00 84 03/30/17 19:57 98 Nasal Cannula 3.00 03/30/17 19:57 98.3 88 16 112/65 (81) 98 03/30/17 19:00 85 Result Diagram: 03/31/1742903/31/17429 Telemetry: NSR (1) STEMI (ST elevation myocardial infarction) Plan: on ASA statin BB (2) S/P CABG x 3 Plan: ASA, statin , BB gentle diuresis , + 5 kg pulm toileting nebs, ezpap acapella chest tube removed without difficulty (3) Hyperlipemia (4) Coronary artery disease Plan: (5) PAD (peripheral artery disease) Plan: on plavix (6) s/p Right common femoral endarterectomy Plan: prevena dressing in place / + distal doppler pulses (7) History of BPH (8) Chronic back pain Plan: on indocin, and resume gabapentin Leonora Vasquez Mar 31, 2017 17:03
[2017-03-31] MEDS ORDERED: FUROSEMIDE 40 MG/4 ML VIAL IV PUSH ONE (17:15)
[2017-03-31] MEDS ORDERED: POTASSIUM CHLORIDE 20 MEQ CONTROLLED RELEASE TAB PO ONE (17:15)
[2017-03-31] MEDS ORDERED: PLAV75TA29 PO (17:16)
[2017-03-31] MEDS ORDERED: ASPI81 PO (17:16)
[2017-03-31] MEDS ORDERED: OXYC1TAB35 PO (17:16)
[2017-03-31] MEDS ORDERED: LISI-519 PO (17:16)
[2017-03-31] MEDS ORDERED: AMIO200T PO (17:16)
[2017-03-31] MEDS ORDERED: DOCU1CAP39 PO (17:16)
[2017-03-31] MEDS: ATORVASTATIN 40 MG TAB PO SCH (20:59)
[2017-03-31] MEDS: SENNOSIDES 8.6 MG TAB PO SCH (21:00)
[2017-04-01] VITALS (21 sets, daily range): BP systolic 130–144; BP diastolic 63–71; PULSE 67–92; RESP 14–16; TEMP 98–98.8; O2SAT 94–98
[2017-04-01] MEDS: oxyCODONE/ACETAMINOPHEN 5 MG/325 MG TAB PO PRN ×5 (04:47→20:49)
[2017-04-01 05:11] LABS: HEMATOCRIT 21.8 % (39.0-51.0); MEAN CELL VOLUME 95.3 FL (80.0-100.0); MEAN CORPUSCULAR HEMOGLOBIN 33.4 PG (27.0-34.0); MEAN CORPUSCULAR HGB CONC 35.1 % (32.0-36.0); PLATELET COUNT 103 TH/MM3 (150-450); RED BLOOD COUNT 2.29 MIL/MM3 (4.50-5.90); RED CELL DISTRIBUTION WIDTH 13.5 % (11.6-17.2); REVIEW FLAG FINAL; WHITE BLOOD COUNT 5.8 TH/MM3 (4.0-11.0)
[2017-04-01] MEDS: PANTOPRAZOLE SOD 40 MG DELAYED RELEASE TAB PO SCH (06:29)
[2017-04-01] MEDS: INSULIN ASPART SUPPLEMENTAL SCALE SQ SCH ×4 (07:42→21:00)
[2017-04-01] MEDS: RESP: ALBUTEROL 2.5 MG/IPRATROPIUM 0.5 MG NEB (SCH) NEB (08:00)
--- NOTE | 2017-04-01 08:29 | PD.CAR.PN ---
CVT Progress Note CVT: POD #: 3 Subjective/Hospital Course: 66-year-old male, known to have coronary artery disease. He had an inferior STEMI in February 2006 and had a 3.0 x 28 mm Cypher stent to the right coronary artery then in March 2016 underwent stenting of the proximal LAD with a 3.0 x 18 mm drug-eluting stent, along with a 2.5 x 18 mm drug-eluting stent of the mid-LAD and balloon angioplasty of the diagonal branch. He underwent right common femoral endarterectomy 03/28 , after waking up from surgery developed jaw pain and noted to have significant ST changes on the monitor postop 12-lead EKG is very abnormal with more than [address] depression V3-V6 but also has some subtle changes in 1 and AVL and the inferior leads. 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 Elevated left ventricular end-diastolic pressure due to ischemia, Preserved left ventricular systolic function EF 50%, Critical left main and multivessel coronary artery disease, IABP was placed and started on Heparin and NTG / he is undergoing Coronary artery bypass grafting today PMH: Includes past alcohol abuse, Coronary artery disease/ [place]/ stents , Renal cyst, Fatty liver disease, Gout, Hyperlipidemia, Hypertension, Neuropathy, Cancer of the soft palate, treated with radiation therapy, Peripheral arterial disease. Benign prostatic hypertrophy, Right lower extremity claudication, peripheral arterial occlusive disease. surgery: 03/28 Right common femoral endarterectomy, Right lower extremity angiogram, Right SFA orbital atherectomy and angioplasty by Dr Tran surgery 03/29 : 1. Urgent Clampless Off-pump Coronary Artery Bypass Grafting x 3 with Left Internal Mammary Artery (NAZARIO) to the Left Anterior Descending (LAD) , reverse saphenous vein graft to the Obtuse Marginal 1 (OM1), reverse saphenous vein graft to the Ramus Marginalis (RM), Left Leg Endoscopic Vein [place], Ultrasound-guided Dissection of the LAD extubated after surgery crystalloid 4000cc, EBL 800cc, cell saver 550cc IABP 1.3 since 7am, no pressors , PLT stable Left groin IABP removed this am with balloon intact , hemostasis obtained after 20min, no hematoma or oozing at site, + Doppler pulse throughout groin hold pressure dressing applied pain meds adjusted for control, BP meds adjusted for HTN bedrest x 6 hours, then OOB to chair keep in CVICU today 03/31 doing well, pain controlled chest tubes removed without difficulty left IABP site, with mild ecchymosis , no hematoma remains in NSR 04/01/17 Doing well, anemic Objective: Vital Signs Date Time Temp Pulse Resp B/P (MAP) Pulse Ox O2 Delivery O2 Flow Rate FiO2 04/01/17 06:10 14 04/01/17 06:00 81 04/01/17 05:00 77 04/01/17 04:00 82 04/01/17 03:00 95 Nasal Cannula 2.00 04/01/17 03:00 86 04/01/17 03:00 98.8 85 14 132/67 (88) 95 04/01/17 02:00 90 04/01/17 01:00 76 04/01/17 00:00 72 03/31/17 23:00 93 Nasal Cannula 2.00 03/31/17 23:00 78 03/31/17 23:00 98.1 82 16 115/60 (78) 93 03/31/17 22:00 84 03/31/17 21:00 88 03/31/17 20:20 92 21 03/31/17 20:00 74 03/31/17 19:00 86 03/31/17 19:00 94 Nasal Cannula 2.00 03/31/17 19:00 98.0 82 16 115/57 (76) 94 03/31/17 18:00 82 03/31/17 17:00 75 03/31/17 16:00 68 03/31/17 15:00 98.0 73 18 128/64 (85) 92 03/31/17 15:00 74 03/31/17 15:00 92 Room Air 03/31/17 14:00 77 03/31/17 13:00 71 03/31/17 12:00 73 03/31/17 11:00 99 Room Air 03/31/17 11:00 72 03/31/17 11:00 97.8 74 18 108/75 (86) 99 03/31/17 10:00 84 03/31/17 09:00 88 Labs: Laboratory Tests Test 04/01/17 04:20 White Blood Count 5.8 TH/MM3 (4.0-11.0) Red Blood Count 2.29 MIL/MM3 (4.50-5.90) Hemoglobin 7.6 GM/DL (13.0-17.0) Hematocrit 21.8 % (39.0-51.0) Mean Corpuscular Volume 95.3 FL (80.0-100.0) Mean Corpuscular Hemoglobin 33.4 PG (27.0-34.0) Mean Corpuscular Hemoglobin Concent 35.1 % (32.0-36.0) Red Cell Distribution Width 13.5 % (11.6-17.2) Platelet Count 103 TH/MM3 (150-450) Mean Platelet Volume 8.5 FL (7.0-11.0) Result Diagram: 04/01/1741903/31/17429 Cardiovascular: RRR Telemetry: NSR Pulmonary: CTA GI/: NABS, NT Incision: dry and intact Plan: Transfuse 2 u pRBC Diurese - ~8kg up from preop weight anticipate d/c tomorrow or monday. Encourage ambulation Stim BM (1) STEMI (ST elevation myocardial infarction) Plan: on ASA statin BB (2) S/P CABG x 3 Plan: ASA, statin , BB gentle diuresis , + 5 kg pulm toileting nebs, ezpap acapella chest tube removed without difficulty (3) Hyperlipemia (4) Coronary artery disease Plan: (5) PAD (peripheral artery disease) Plan: on plavix (6) s/p Right common femoral endarterectomy Plan: prevena dressing in place / + distal doppler pulses (7) History of BPH (8) Chronic back pain Plan: on indocin, and resume gabapentin Ana Lilia Cuevas MD Apr 01, 2017 08:29
[2017-04-01] MEDS: SODIUM CHLORIDE 0.9% FLUSH 10 ML FLUSH IV FLUSH SCH ×2 (09:00→21:00)
[2017-04-01] MEDS: MUPIROCIN 2% OINT 1 APPLIC/GM SYR EACH NARE SCH ×2 (09:00→20:47)
[2017-04-01] MEDS: POLYETHYLENE GLYCOL 17 GM PKG PO SCH (09:00)
[2017-04-01] MEDS: MAGNESIUM HYDROXIDE SUSP 30 ML CUP PO SCH (09:00)
[2017-04-01] MEDS: CLOPIDOGREL 75 MG TAB PO SCH (09:14)
[2017-04-01] MEDS: DOCUSATE SODIUM 100 MG CAP PO SCH ×2 (09:14→21:00)
[2017-04-01] MEDS: ASPIRIN 81 MG CHEW TAB PO SCH (09:15)
[2017-04-01] MEDS: AMIODARONE 200 MG TAB PO SCH ×2 (09:15→20:49)
[2017-04-01] MEDS: METOPROLOL TARTRATE 25 MG TAB PO SCH ×2 (09:15→20:48)
[2017-04-01] MEDS: MULTIVITAMINS/MINERALS THERAPEUTIC TAB PO SCH (09:15)
[2017-04-01] MEDS: GABAPENTIN 300 MG CAP PO SCH ×3 (09:15→17:34)
[2017-04-01] MEDS: FUROSEMIDE 40 MG/4 ML VIAL IV PUSH SCH ×2 (09:16→17:35)
[2017-04-01] MEDS: INDOMETHACIN 50 MG CAP PO SCH (09:16)
--- NOTE | 2017-04-01 09:59 | RADRPT ---
EXAM DATE/TIME: 04/01/2017 09:09 [place] COMPARISON: CHEST SINGLE AP, March 30, 2017, 4:36. INDICATIONS : Left chest tube removal MEDICAL HISTORY : Carcinoma, oral cavity. Myocardial infarction. PVD BPH SURGICAL HISTORY : CABG. Coronary artery stent. Total knee replacement, left ENCOUNTER: Subsequent ACUITY: 3 days PAIN SCORE: Non-responsive. LOCATION: Bilateral chest FINDINGS: Left-sided chest tube has been removed. There is no significant pneumothorax. The lungs remain hypoaerated with patchy airspace disease. Heart and mediastinal structures are stable. CONCLUSION: No evidence of pneumothorax following left-sided chest tube removal. Bilateral airspace disease. Twin Lujan MD on April 01, 2017 at 9:57 Board Certified Radiologist. This report was verified electronically.
[2017-04-01] MEDS: FERROUS SULFATE 325 MG (65 MG ELEMENTAL IRON) TAB PO SCH ×2 (11:47→17:33)
[2017-04-01 15:57] LABS: HEMATOCRIT 27.9 % (39.0-51.0); REVIEW FLAG FINAL
[2017-04-01] MEDS: ATORVASTATIN 40 MG TAB PO SCH (20:48)
[2017-04-01] MEDS: SENNOSIDES 8.6 MG TAB PO SCH (21:00)
[2017-04-02] VITALS (13 sets, daily range): BP systolic 134–153; BP diastolic 71–77; PULSE 62–82; RESP 16–18; TEMP 97.8–98.3; O2SAT 93–96
[2017-04-02] MEDS: oxyCODONE/ACETAMINOPHEN 5 MG/325 MG TAB PO PRN ×3 (00:44→12:11)
[2017-04-02] MEDS: PANTOPRAZOLE SOD 40 MG DELAYED RELEASE TAB PO SCH (06:00)
[2017-04-02] MEDS: INSULIN ASPART SUPPLEMENTAL SCALE SQ SCH ×2 (08:00→12:00)
--- NOTE | 2017-04-02 08:44 | PD.VS.PN ---
Subjective POD #: 5 Procedure(s): R groin revision and SFA orbital atherectomy Subjective/Hospital Course post op [place] necessitating CABG Looks great now. No c/o groin pain and foot feels great layla po Feels he is ready for d/c Objective Vitals/I&O Date Time Temp Pulse Resp B/P (MAP) Pulse Ox O2 Delivery O2 Flow Rate FiO2 04/02/17 06:00 62 04/02/17 05:00 77 04/02/17 04:00 77 04/02/17 03:12 93 Room Air 04/02/17 03:12 98.3 77 18 145/73 (97) 93 04/02/17 03:11 71 04/02/17 02:00 70 04/02/17 00:00 98.3 75 18 134/71 (92) 94 04/02/17 00:00 94 Room Air 04/01/17 20:00 94 Room Air 04/01/17 20:00 98.0 72 16 130/63 (85) 94 04/01/17 18:00 73 04/01/17 17:00 72 04/01/17 16:00 67 04/01/17 15:00 98.1 71 16 133/63 (86) 95 Arterial Line 04/01/17 15:00 95 Room Air 04/01/17 15:00 72 04/01/17 14:00 72 04/01/17 13:00 67 04/01/17 12:53 98.0 76 16 144/71 98 04/01/17 12:00 69 04/01/17 11:00 98.0 86 16 144/71 (95) 98 04/01/17 11:00 98 Room Air 04/01/17 11:00 69 04/01/17 10:00 92 04/01/17 09:00 83 04/02/17 04/02/17 04/02/17 07:00 15:00 23:00 Intake Total 240 ml Output Total 400 ml Balance -160 ml Exam: Sitting in chair R groin VAC in place without underlying hematoma Laboratory Laboratory Tests Test 04/01/17 15:48 Hemoglobin 9.8 Hematocrit 27.9 Date/Time Source Procedure Growth Status 03/28/17 21:05 Urine Random Urine Urine Culture - Final NO GROWTH IN 48 HOURS. Complete Assessment and Plan Plan POD#5 s/p R groin reconstruction and angiogram/endovascular intervention post op CABG and looks great management per TCV Ready for d/c from vascular surgery standpoint will coordinate post-d/c f/u with [facility]CV Discharge Planning per [facility]CV Cuco Tran MD Apr 02, 2017 08:44
[2017-04-02] MEDS: ASPIRIN 81 MG CHEW TAB PO SCH (08:47)
[2017-04-02] MEDS: CLOPIDOGREL 75 MG TAB PO SCH (08:47)
[2017-04-02] MEDS: AMIODARONE 200 MG TAB PO SCH (08:47)
[2017-04-02] MEDS: MULTIVITAMINS/MINERALS THERAPEUTIC TAB PO SCH (08:48)
[2017-04-02] MEDS: METOPROLOL TARTRATE 25 MG TAB PO SCH (08:48)
[2017-04-02] MEDS: GABAPENTIN 300 MG CAP PO SCH ×2 (08:48→12:10)
[2017-04-02] MEDS: INDOMETHACIN 50 MG CAP PO SCH (08:48)
[2017-04-02] MEDS: FUROSEMIDE 40 MG/4 ML VIAL IV PUSH SCH (08:49)
[2017-04-02] MEDS: SODIUM CHLORIDE 0.9% FLUSH 10 ML FLUSH IV FLUSH SCH (08:49)
[2017-04-02] MEDS: DOCUSATE SODIUM 100 MG CAP PO SCH (08:50)
[2017-04-02] MEDS: MUPIROCIN 2% OINT 1 APPLIC/GM SYR EACH NARE SCH (08:50)
[2017-04-02] MEDS: MAGNESIUM HYDROXIDE SUSP 30 ML CUP PO SCH (08:50)
[2017-04-02] MEDS: POLYETHYLENE GLYCOL 17 GM PKG PO SCH (08:50)
--- NOTE | 2017-04-02 11:49 | HHI.DS ---
Discharge Summary Admission Date Mar 28, 2017 at 08:52 Discharge Date: Apr 02, 2017 Admitting Diagnosis Peripheral vascular disease HTN CAD hyperlipidemia (1) S/P CABG x 3 Diagnosis: Principal ICD Codes: Z95.1 - Presence of aortocoronary bypass graft (2) STEMI (ST elevation myocardial infarction) Diagnosis: Principal ICD Codes: I21.3 - ST elevation (STEMI) myocardial infarction of unspecified site (3) Hypertension Diagnosis: Secondary ICD Codes: I10 - Hypertension Status: Acute (4) Coronary artery disease Diagnosis: Principal ICD Codes: I25.10 - Atherosclerotic heart disease of [place] coronary artery without angina pectoris (5) Hyperlipemia Diagnosis: Secondary ICD Codes: E78.5 - Hyperlipidemia, unspecified (6) PAD (peripheral artery disease) Diagnosis: Secondary ICD Codes: I73.9 - Peripheral vascular disease, unspecified (7) s/p Right common femoral endarterectomy Diagnosis: Secondary (8) Hyperlipidemia Diagnosis: Secondary ICD Codes: E78.5 - Hyperlipidemia Status: Acute Procedures Right common femoral endarterectomy, Right lower extremity angiogram, Right SFA orbital atherectomy and angioplasty Emergent left heart cath IABP insertion CABG x 3 Brief History 66-year-old male, known to have coronary artery disease. He had an inferior STEMI in February 2006 and had a 3.0 x 28 mm Cypher stent to the right coronary artery then in March 2016 underwent stenting of the proximal LAD with a 3.0 x 18 mm drug-eluting stent, along with a 2.5 x 18 mm drug-eluting stent of the mid-LAD and balloon angioplasty of the diagonal branch. He underwent right common femoral endarterectomy 03/28 , after waking up from surgery developed jaw pain and noted to have significant ST changes on the monitor postop 12-lead EKG is very abnormal with more than [address] depression V3-V6 but also has some subtle changes in 1 and AVL and the inferior leads. 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 Elevated left ventricular end-diastolic pressure due to ischemia, Preserved left ventricular systolic function EF 50%, Critical left main and multivessel coronary artery disease, IABP was placed and started on Heparin and NTG / he is undergoing Coronary artery bypass grafting today PMH: Includes past alcohol abuse, Coronary artery disease/ [place]/ stents , Renal cyst, Fatty liver disease, Gout, Hyperlipidemia, Hypertension, Neuropathy, Cancer of the soft palate, treated with radiation therapy, Peripheral arterial disease. Benign prostatic hypertrophy, Right lower extremity claudication, peripheral arterial occlusive disease. CBC/BMP: 04/01/17 1548 03/31/17 0430 Significant Findings Laboratory Tests Test 03/31/17 04:30 04/01/17 04:20 04/01/17 15:48 Red Blood Count 2.43 MIL/MM3 (4.50-5.90) 2.29 MIL/MM3 (4.50-5.90) Hemoglobin 8.0 GM/DL (13.0-17.0) 7.6 GM/DL (13.0-17.0) 9.8 GM/DL (13.0-17.0) Hematocrit 23.5 % (39.0-51.0) 21.8 % (39.0-51.0) 27.9 % (39.0-51.0) Platelet Count 109 TH/MM3 (150-450) 103 TH/MM3 (150-450) Neutrophils (%) (Auto) 83.8 % (16.0-70.0) Lymphocytes (%) (Auto) 6.5 % (9.0-44.0) Monocytes (%) (Auto) 8.3 % (0.0-8.0) Lymphocytes # (Auto) 0.5 TH/MM3 (1.0-4.8) Blood Urea Nitrogen 22 MG/DL (7-18) Calcium Level 8.2 MG/DL (8.5-10.1) Estimat Glomerular Filtration Rate 84 ML/MIN (>89) Imaging Last Impressions Chest X-Ray 04/01/17 0000 Signed Impressions: Service Date/Time: Saturday, April 01, 2017 09:09 - CONCLUSION: No evidence of pneumothorax following left-sided chest tube removal. Bilateral airspace disease. Twin Lujan MD Lower Extremity Ultrasound 03/28/17 0000 Signed Impressions: Service Date/Time: Tuesday, March 28, 2017 19:07 - CONCLUSION: 1. The greater saphenous vein is patent within the thighs bilaterally. Lack of visualization below the level of the knee on the right and below the mid calf on the left. Bulmaro Christiansen Jr., MD PE at Discharge Chest - CTA COR - RRR ABD - soft, NT, NABS wounds - dry and intact Hospital Course surgery: 03/28 Right common femoral endarterectomy, Right lower extremity angiogram, Right SFA orbital atherectomy and angioplasty by Dr Tran PERIOPERATIVE STEMI REQUIRING EMERGENT LEFT HEART CATH AND IABP PLACEMENT surgery 03/29 : 1. Urgent Clampless Off-pump Coronary Artery Bypass Grafting x 3 with Left Internal Mammary Artery (NAZARIO) to the Left Anterior Descending (LAD) , reverse saphenous vein graft to the Obtuse Marginal 1 (OM1), reverse saphenous vein graft to the Ramus Marginalis (RM), Left Leg Endoscopic Vein [place], Ultrasound-guided Dissection of the LAD extubated after surgery crystalloid 4000cc, EBL 800cc, cell saver 550cc IABP 1.3 since 7am, no pressors , PLT stable Left groin IABP removed this am with balloon intact , hemostasis obtained after 20min, no hematoma or oozing at site, + Doppler pulse throughout groin hold pressure dressing applied pain meds adjusted for control, BP meds adjusted for HTN bedrest x 6 hours, then OOB to chair keep in CVICU today 03/31 doing well, pain controlled chest tubes removed without difficulty left IABP site, with mild ecchymosis , no hematoma remains in NSR 04/01/17 Doing well, anemic transfuse 2 units pRBC, diurese 04/02/17 No complaints - feels stronger and requesting d/c. Pt Condition on Discharge: Good Discharge Disposition: Disch w/ Home Health Serv Discharge Instructions DIET: Follow Instructions for: Heart Healthy Diet Activities you can perform: Full Weight Bearing, Shower Only-No Bath Activities to avoid: Strenuous Activity, Driving Additional Activity Instructio: no lifting > 8 lbs or gallon of milk Follow up Referrals: Appointment for Follow Up with Micheal Xavier MD PCP Follow-up with Danny Hi MD, [facility] with Dian Berman MD Vascular Surgery with Cuco Tran MD New Medications: Lisinopril (Lisinopril) 5 Mg Tab 5 MG PO DAILY for Blood Pressure Management, #30 TAB 1 Refill Oxycodone-Acetaminophen (Oxycodone-Acetaminophen) 7.5-325 mg Tab 1 TAB PO Q4H PRN for PAIN, #40 TAB 0 Refills Amiodarone (Amiodarone) 200 Mg Tab 200 MG PO Q12HR for heart rhythm, #28 TAB 0 Refills Aspirin (Tgt Aspirin) 81 Mg Chw 81 MG PO DAILY for Blood Clot Prevention, #30 EA 2 Refills Clopidogrel (Plavix) 75 Mg Tab 75 MG PO DAILY for Blood Clot Prevention, #30 TAB 2 Refills Docusate Sodium (Dok) 100 Mg Cap 100 MG PO BID for Constipation, #60 CAP 0 Refills Continued Medications: Atorvastatin (Atorvastatin) 80 Mg Tab 80 MG PO HS for Cholesterol Management, TAB 0 Refills Fish Oil-Cholecalciferol ([place]-3 Fish Oil/Vitamin) 1,000-1,000 Mg Cap 1 CAP PO BID for Nutritional Supplement, CAP 0 Refills Gabapentin (Gabapentin) 800 Mg Tab 800 MG PO TID, TAB 0 Refills Indomethacin (Indomethacin) 50 Mg Cap 50 MG PO DAILY, CAP 0 Refills Take with food, milk, or antacids to decrease stomach adverse effects. Metoprolol Tartrate (Metoprolol Tartrate) 25 Mg Tab 25 MG PO BID, #120 TAB 3 Refills Multiple Vitamin (Multiple Vitamin) 1 Tab 1 TAB PO DAILY for Nutritional Supplement, TAB 0 Refills Vitamin E Acid Succinate (Vitamin E) 400 Unit Tablet 1 CAP PO DAILY for Nutritional Supplement Discontinued Medications: Amlodipine (Amlodipine) 10 Mg Tab 10 MG PO DAILY for Blood Pressure Management, TAB 0 Refills Aspirin (Aspirin) 325 Mg Tab 325 MG PO DAILY, TAB 0 Refills Cilostazol (Cilostazol) 50 Mg Tab 50 MG PO BID for INTERMITTENT CLAUDICATION, TAB 0 Refills Gabapentin (Gabapentin) 100 Mg Cap 100 MG PO TID, CAP 0 Refills Hydrocodone-Acetaminophen (Hydrocodone-Acetaminophen) 10-325 mg Tab 1 TAB PO DAILY PRN for PAIN, #30 TAB 0 Refills Fill on 03/22/2017 Lisinopril (Lisinopril) 20 Mg Tab 20 MG PO DAILY, TAB 0 Refills Tadalafil (Cialis) 10 Mg Tab 10 MG PO DAILY PRN for Erectile Dysfunction, TAB 0 Refills Do not exceed 1 dose/day. Ana Lilia Cuevas MD Apr 02, 2017 11:48
[2017-04-02] MEDS: FERROUS SULFATE 325 MG (65 MG ELEMENTAL IRON) TAB PO SCH (12:10)
== END 2017-04-02 14:15 | disposition home health service (06) | DRG 233 ==
LOC: HSDI 03-28 08:52 → HCVI 03-28 18:27 → HCPC 03-30 18:00
PROVIDERS: ADMIT Thoracic Surgery (Cardiothoracic Vascular Surgery); ATTEND Thoracic Surgery (Cardiothoracic Vascular Surgery)
PROC: 4A023N7 Measurement of Cardiac Sampling and Pressure, Left Heart, Percutaneous Approach (ICD-10-PCS; 2017-03-28)
PROC: 5A02210 Assistance with Cardiac Output using Balloon Pump, Continuous (ICD-10-PCS; 2017-03-28)
PROC: 04UK0KZ Supplement Right Femoral Artery with Nonautologous Tissue Substitute, Open Approach (ICD-10-PCS; 2017-03-28)
PROC: 047K3ZZ Dilation of Right Femoral Artery, Percutaneous Approach (ICD-10-PCS; 2017-03-28)
PROC: B41F1ZZ Fluoroscopy of Right Lower Extremity Arteries using Low Osmolar Contrast (ICD-10-PCS; 2017-03-28)
PROC: B2151ZZ Fluoroscopy of Left Heart using Low Osmolar Contrast (ICD-10-PCS; 2017-03-28)
PROC: B2111ZZ Fluoroscopy of Multiple Coronary Arteries using Low Osmolar Contrast (ICD-10-PCS; 2017-03-28)
PROC: 04CK0ZZ Extirpation of Matter from Right Femoral Artery, Open Approach (ICD-10-PCS; principal; 2017-03-28 11:35)
PROC: 021109W Bypass Coronary Artery, Two Arteries from Aorta with Autologous Venous Tissue, Open Approach (ICD-10-PCS; 2017-03-29)
PROC: 06BQ4ZZ Excision of Left Saphenous Vein, Percutaneous Endoscopic Approach (ICD-10-PCS; 2017-03-29)
PROC: 02100Z9 Bypass Coronary Artery, One Artery from Left Internal Mammary, Open Approach (ICD-10-PCS; 2017-03-29 06:52)
PROC: 30233N1 Transfusion of Nonautologous Red Blood Cells into Peripheral Vein, Percutaneous Approach (ICD-10-PCS; 2017-04-01)
DX: I73.9 Peripheral vascular disease, unspecified (principal); I21.4 Non-ST elevation (NSTEMI) myocardial infarction; K76.0 Fatty (change of) liver, not elsewhere classified; I97.191 Other postprocedural cardiac functional disturbances following other surgery; G62.9 Polyneuropathy, unspecified; I10 Essential (primary) hypertension; I25.10 Atherosclerotic heart disease of native coronary artery without angina pectoris; Z95.1 Presence of aortocoronary bypass graft; Z95.5 Presence of coronary angioplasty implant and graft; I25.2 Old myocardial infarction; M10.9 Gout, unspecified; E78.5 Hyperlipidemia, unspecified; N40.0 Benign prostatic hyperplasia without lower urinary tract symptoms; D64.9 Anemia, unspecified; N52.9 Male erectile dysfunction, unspecified; M54.9 Dorsalgia, unspecified; G89.29 Other chronic pain; Z85.818 Personal history of malignant neoplasm of other sites of lip, oral cavity, and pharynx; Z92.3 Personal history of irradiation; Z87.891 Personal history of nicotine dependence; Z96.652 Presence of left artificial knee joint
CPT/HCPCS: 33967; 33990; 36430; 71010; 80048; 81001; 82550; 82948; 83735; 84100; 84484; 85014; 85018; 85025; 85027; 85610; 85730; 86850; 86900; 86901; 86920; 87086; 87641; 93005; 93318; 93458; 93970; 93998; 94002; 94150; 94640; 94664; 94667; 94668; 99152; 99153; C1768; C1769; C1893; J0131; J0360; J0690; J1170; J1644; J1815; J1817; J1885; J1940; J2250; J2260; J2270; J2370; J2405; J2440; J2710; J2720; J3010; J3370; J3475; J3480; J7030; J7120; P9016; P9045; Q9967